=== PATIENT | female | born 1995 | race Caucasian/White ===

== ENCOUNTER → 2017-07-06 10:18 | Outpatient (CLI) | payer OTHER, SELFPAY ==
[2017-07-06 10:24] LABS: White Blood Cells 0 SEEN /hpf (0-5)
[2017-07-06 12:02] LABS: Color, Urine Yellow (Yellow); Glucose, Dipstick Normal (Normal); Ketone-Dipstick Negative (Negative); Leukocyte Esterase-Dipstick 25 /ul (Negative); Nitrite-Dipstick Negative (Negative); Occult Blood-Urine 250 /ul (Negative); Protein-Dipstick 30 mg/dl (Negative); Specific Gravity, Urine 1.015 (1.002-1.030); Urine Bilirubin Dipstick Negative (Negative); Urine Clarity Sl. Cloudy (Clear); Urine Urobilinogen Normal (Normal)
[2017-07-06 12:15] LABS: Amphetamine Urine VISTA NEGATIVE (<1000 ng/mL); Barbiturate Urine VISTA NEGATIVE (< 200 ng/mL); Benzodiazepine Urine VISTA NEGATIVE (< 200 ng/mL); Cocaine Urine VISTA NEGATIVE (< 300 ng/mL); Ecstacy Urine VISTA NEGATIVE (< 500 ng/mL); Methadone Urine VISTA NEGATIVE (< 300 ng/mL); PCP Urine VISTA NEGATIVE (< 25 ng/mL); THC Urine VISTA NEGATIVE (< 50 ng/mL); Vista UDS pH Range 5
[2017-07-06 12:16] LABS: Absolute Neutrophil Count 4.5 X10^3/uL (2.0-7.7); Basophil# 0.03 X10^3/uL; Basophil% 0.4 % (0-1); Eosinophil# 0.16 X10^3/uL; Eosinophils% 2.4 % (0-5); Hematocrit 39.2 % (37-47); Hemoglobin 12.7 g/dl (12.0-15.0); Lymphocyte % 23.6 % (19-41); Mean Corp Hgb Conc 32.4 g/gl (32-36); Mean Corpuscular Hgb 26.5 pg (27.0-32.0); Mean Corpuscular Volume 81.8 fL (81-99); Mean Platelet Vol. 9.9 fl (6.2-12.0); Monocyte# 0.45 X10^3/uL; Monocyte% 6.6 % (0-10); Neutrophil # 4.54 X10^3/uL (2.7-7.7); Neutrophil % 66.9 % (47-70); Platelet Count 368 K/mm3 (150-450); RBC Distribution Width CV 13.5 % (11.6-14.6); RBC Distribution Width SD 39.6 fl (35.1-43.9); Red Blood Count 4.79 M/mm3 (4.2-5.4); White Blood Count 6.8 K/mm3 (4.4-11.0)
[2017-07-06 12:17] LABS: POSITIVE COUNT NO; POSITIVE DIFFERENTIAL NO; POSITIVE MORPHOLOGY NO
[2017-07-06 12:23] LABS: Bacteria RARE /hpf (None Seen); Mucous, Urine RARE /hpf (<or=2+); Red Blood Cells-Urine 0-5 SEEN /hpf (0-5); Squamous Epithelial Cells - UA 0-5 SEEN /hpf (5-10)
[2017-07-06 12:37] LABS: Hemoglobin A1c 5.1 % (4.2-6.3)
[2017-07-06 12:40] LABS: ALB/GLOB Ratio 0.9 RATIO (0.9-2.4); AST(SGOT) 28 U/L (15-37); Alanine Aminotransfer ALT/SGPT 42 U/L (13-56); Albumin, Serum 3.6 g/dL (3.2-5.0); Alkaline Phosphatase 65 U/L (45-117); Anion Gap 9 (5-15); BUN 9 mg/dL (7-18); BUN/Creat Ratio 10.3 RATIO (10-20); Calcium,Total 8.4 mg/dL (8.5-10.1); Chloride 103 mmol/L (98-107); Cholesterol 167 mg/dL (200); Creatinine, Serum 0.87 mg/dL (0.55-1.02); EST Glomerular Filtration Rate 85 mL/min (>60); Est Glom Filt Rate - Afr Amer 103 mL/min (>60); Glucose 94 mg/dL (74-106); High Density Lipoprotein 36 mg/dL; Potassium 3.4 mmol/L (3.5-5.1); Protein, Total 7.6 g/dL (6.4-8.2); Sodium Level 140 mmol/L (136-145); Thyroid Stim Hormone (TSH) 1.42 uIU/mL (0.358-3.74); Triglycerides 177 mg/dL; Very Low Density Lipoprotein 35 mg/dL (5-40)
== END ==
LOC: MFPLAB 10:21
PROVIDERS: Family Provider Family Medicine; PCP Family Medicine; Visit Provider Family Medicine
DX: I10 Essential (primary) hypertension (principal); Z83.3 Family history of diabetes mellitus; E66.01 Morbid (severe) obesity due to excess calories
CPT/HCPCS: 36415; 80053; 80061; 80307; 81001; 83036; 84443; 85025

== ENCOUNTER → 2017-07-17 08:40 | Outpatient (CLI) | payer OTHER, SELFPAY ==
--- NOTE | 2017-07-17 08:46 | MRI_ITS ---
STUDY: MRI BRAIN WITH AND WITHOUT CONTRAST REASON FOR EXAM: Female, 22 years old. Headache, sudden and severe for 2 months. Focal area with blurred vision. TECHNIQUE: Standardized multiplanar fat and water weighted pulse sequences were obtained. 14 ml of Gadavist contrast material was administered intravenously for the contrast portion of the examination. COMPARISON: None. FINDINGS: Normal size of the ventricles and extra-axial spaces for the patient's age. Normal white matter tracts of the supratentorial brain. There is no evidence for recent intracranial ischemia or other cause of cytotoxic edema on diffusion weighted imaging (DWI). Normal T2* images of the brain without demonstrated susceptibility artifact. There is no demonstrated hemosiderin stain. Normal bilateral basal ganglia. Normal thalami. There is no extra-axial fluid accumulation. Normal flow voids within the major intracranial circulation suggesting patency by spin echo criteria. Normal venous enhancement. There is no enhancing intra-axial or extra-axial abnormality. Normal sella turcica, pituitary gland, infundibular stalk, optic chiasm and hypothalamus. Normal tectal plate and pineal gland. Normal midbrain, bettie and medulla. Normal cerebellum. Normal basal cisterns. Normal bilateral temporal bones. Normal bilateral internal auditory canals. No demonstrated orbital abnormality, within the constraints of a routine brain study. Normal visualized paranasal sinuses. Normal calvarium and skull base. Normal visualized soft tissue structures. Normal visualized upper cervical spine. MRI/Brain W/WO Contrast IMPRESSION: No evidence of acute intracranial bleed, mass or ischemia. No evidence of abnormal enhancement. Electronically Signed: Gregor Schmitt DO at 10:47 EDT , Service support ,
== END ==
LOC: MRI 08:41
PROVIDERS: Family Provider Family Medicine; PCP Family Medicine; Visit Provider Family Medicine
DX: R51 Headache (principal)
CPT/HCPCS: 70553; A9585

== ENCOUNTER 2017-09-06 14:30 | Emergency (ER) | payer OTHER, SELFPAY ==
--- NOTE | 2017-09-06 14:39 | EKG12_ITS ---
Test Reason : CP Blood Pressure : / mmHG Vent. Rate : 102 BPM Atrial Rate : 102 BPM P-R Int : 144 ms QRS Dur : 094 ms QT Int : 358 ms P-R-T Axes : 042 010 032 degrees QTc Int : 466 ms Sinus tachycardia Otherwise normal ECG Confirmed by NELSON HARE, BAIRON ([id number]), editor dictionary MIGUE DANIELS ([id number]) on 09/08/2017 3:30:59 PM Referred By: JUAN/REJI Confirmed By:BAIRON DAMON MD
[2017-09-06 14:40] VITALS: BP 150/95; PULSE 97; RESP 20; TEMP 36.7; O2SAT 99; BMI 50.7
[2017-09-06 14:43] VITALS: O2SAT 97
[2017-09-06] MEDS: Aspirin 81 MG TAB.CHEW 324 MG PO (14:51)
[2017-09-06] MEDS: 0.9% Normal Saline 1,000 ML 150 ML IV (14:52)
--- NOTE | 2017-09-06 14:55 | RAD_ITS ---
STUDY: X-RAY CHEST REASON FOR EXAM: Female, 22 years old. 2 day history of chest pain and intermittent shortness of breath. TECHNIQUE: PA and lateral views of the chest. COMPARISON: Comparison is made with prior examination dated March 23, 2017. FINDINGS: EKG electrodes are seen. The lungs are clear and expanded. Scattered calcified granulomas. There is no demonstrated pleural abnormality. Normal size heart. Normal mediastinum and felipe. Normal visualized pulmonary arteries. Normal visualized aortic arch and descending thoracic aorta. Normal visualized thoracic spine. Normal visualized ribs, clavicles, and shoulders. There is no demonstrated abnormality of the visualized soft tissue structures of the upper abdomen. RAD/Chest PA and Lateral IMPRESSION: Normal x-ray examination of the chest. Electronically Signed: Donavan Garg MD at 15:18 EDT Tel [phone], Service support ,
[2017-09-06 14:56] LABS: Absolute Lymphocyte Count 2.66 X10^3/ul (0.83-4.51); Absolute Neutrophil Count 5.9 X10^3/uL (2.0-7.7); Basophil# 0.03 X10^3/uL; Basophil% 0.3 % (0-1); Eosinophil# 0.16 X10^3/uL; Eosinophils% 1.7 % (0-5); Hematocrit 39.1 % (37-47); Hemoglobin 12.7 g/dl (12.0-15.0); Lymphocyte # 2.66 X10^3/ul (4.0); Lymphocyte % 27.6 % (19-41); Mean Corp Hgb Conc 32.5 g/gl (32-36); Mean Corpuscular Hgb 26.1 pg (27.0-32.0); Mean Corpuscular Volume 80.5 fL (81-99); Mean Platelet Vol. 9.4 fl (6.2-12.0); Monocyte# 0.92 X10^3/uL; Monocyte% 9.5 % (0-10); Neutrophil # 5.85 X10^3/uL (2.7-7.7); Neutrophil % 60.6 % (47-70); Platelet Count 372 K/mm3 (150-450); RBC Distribution Width CV 13.8 % (11.6-14.6); RBC Distribution Width SD 39.3 fl (35.1-43.9); Red Blood Count 4.86 M/mm3 (4.2-5.4); White Blood Count 9.7 K/mm3 (4.4-11.0)
[2017-09-06 15:01] LABS: POSITIVE COUNT NO; POSITIVE DIFFERENTIAL NO; POSITIVE MORPHOLOGY NO
[2017-09-06 15:11] LABS: Anion Gap 7 (5-15); BUN 7 mg/dL (7-18); BUN/Creat Ratio 7.4 RATIO (10-20); Calcium,Total 8.5 mg/dL (8.5-10.1); Chloride 106 mmol/L (98-107); Creatinine, Serum 0.94 mg/dL (0.55-1.02); D-Dimer Quantitative (DVT/PE) 0.35 FEU/ug/m (0.27-0.49); EST Glomerular Filtration Rate 78 mL/min (>60); Est Glom Filt Rate - Afr Amer 94 mL/min (>60); Estimated Creatinine Clearance 97.28 ml/min; Glucose 84 mg/dL (74-106); Potassium 3.4 mmol/L (3.5-5.1); Sodium Level 138 mmol/L (136-145)
--- NOTE | 2017-09-06 15:16 | ED.VISSUMM ---
- ER Visit Summary Date of Service: 09/06/17 Chief Complaint: Chest pain History of Present Illness: The patient is a 22 F Zentz to the emergency room with chest pain. Patient states she has been having it intermittently for the past 24 hours. She describes a sharp pressure in the middle of her chest the last about 10 minutes. She has had a scant cough. She was mildly short of breath when the pain started. She denies any pain when she takes a deep breath. She has no history of coronary vascular disease. She states that she did take her inhaler yesterday and it seemed to help. She has never been diagnosed with asthma but will have cough from time to time. She denies fevers or chills. There is no family history of blood clot. There is no family history of early cardiovascular disease. Physical Examination: Vital signs reviewed General: Well-nourished, well-developed Head: Normocephalic, atraumatic Eyes: Pupils equal and reactive, extraocular muscles intact Neck, supple, no lymphadenopathy Heart: Regular rate and rhythm Respiratory: No distress, clear bilaterally Abdomen: Soft, nontender, nondistended, no peritoneal signs Back: Nontender Extremities: Nontender, no edema, no cords Skin: Normal color no rash Neuro: Alert and oriented, no focal or lateralizing deficits Test Results: [] Emergency Department Course and Treatment: KG was obtained on patient arrival. There is no evidence of acute ischemic change. Patient was given IV Toradol and fluids. She had improvement of her pain. Screening labs including d-dimer unremarkable. Troponin is unremarkable. I do feel that this patient likely has musculoskeletal chest pain. I do not suspect a dangerous process. It is intermittent. Pain does not radiate to her back. I do not feel this is aortic dissection or other dangerous process. The patient was treated with anti-inflammatories and be discharged home. Treatment Plan: [] Disposition: Discharge Impression: 1. Costochondritis This note was generated with [employer] dictation software. It may contain incorrect words, spelling, and punctuation that were not noted in review of the chart prior to signing ED Disposition - Plan for ED Patient: Chief Complaint: Chest Pain Instructions: ED Chest Pain Costochondritis Prescriptions: Naproxen [Naprosyn] 500 mg PO BID PRN #20 tab Referrals: Rao Mclain MD [Primary Care Provider] -
[2017-09-06 15:54] VITALS: BP 131/70; PULSE 91; RESP 16; O2SAT 99
== END 2017-09-06 16:00 | disposition home or self-care (01) ==
LOC: ED 14:56
PROVIDERS: Emergency Provider Emergency Medicine; Family Provider Family Medicine; PCP Family Medicine
DX: M94.0 Chondrocostal junction syndrome [Tietze] (principal); R05 Cough; R06.00 Dyspnea, unspecified
CPT/HCPCS: 71046; 80048; 84484; 85025; 85379; 93005; 96360; 99285; J7030; A4216

== ENCOUNTER 2017-11-16 06:47 | Day surgery (SDC) | payer OTHER, SELFPAY ==
--- NOTE | 2017-11-16 | IMM_PTH ---
PATIENT: JASNO SIDDIQI LOC: EN U#:[id number] AGE/SX: 22/F ROOM: RE11/16/[address]: Dr. Farhan Bustamante MD : 1995 BED: DIS: 11/16/2017 SPEC #: [id number] RECD: 11/17/17 14:21 STATUS: NATIVIDAD REDonlel #: [id number] STACI: 11/16/17 00:[address]: Farhan Bustamante DEPT: IMMUNOHISTOCHEMISTRY RECD BY: Carolina Elias ENTERED: 11/17/17 14:21 SP TYPE: IMMUNO OTHR DR: Dr. Rao Mclain MD Tissues: A - Stomach, NOS Procedures: H Pylori (initial) PHYSICIAN & INSTITUTION [place] [id number] SPECIMEN INFORMATION: Tissue Source: A ? Antral biopsy Clinical Info: Esophageal dysphagia Specimen Number: [id number] CPT code: 70536 METHODOLOGY: Deparaffinized sections of prefer/formalin-fixed tissue or PAP/DQ stained slides are incubated with monoclonal/polyclonal antibodies/oligonucleotide probes. Localization is made via biotin free immunoperoxidase method. Appropriate controls are performed and reacted as expected. Results on target cell population are indicated in the following table: RESULTS: ANTIBODY / CLONE RESULT Block A H Pylori (polyclonal) negative These tests were developed and their performance characteristics determined by [facility]. They may not have been cleared or approved by the U.S. Food and Drug Administration. The FDA has determined that such clearance or approval is not necessary. INTERPRETATION: A. Gastric antrum, biopsy: Negative for Helicobacter pylori organisms. AM:walker 11/18/17
[2017-11-16 07:04] VITALS: BP 162/97; PULSE 99; RESP 16; TEMP 36.6; O2SAT 100; BMI 50.5
--- NOTE | 2017-11-16 08:00 | EGD_PTH ---
PATIENT: JASON SIDDIQI LOC: EN U#:[id number] AGE/SX: 22/F ROOM: RE11/16/[address]: Dr. Farhan Bustamante MD : 1995 BED: DIS: 11/16/2017 SPEC #: [id number] RECD: 11/16/17 08:34 STATUS: NATIVIDAD ELVIS #: [id number] STACI: 11/16/17 08:[address]: Farhan Bustamante DEPT: SURGICAL PATHOLOGY RECD BY: [place] ENTERED: 11/16/17 12:23 SP TYPE: EGD BIOPSY OT DR: Dr. Rao Mclain MD Tissues: A - Gastric mucous membrane B - Stomach, NOS C - Esophageal mucous membrane D - Esophageal mucous membrane Procedures: Surgery Specimen Level IV HEADER OPERATION[place] [place] DIAGNOSIS: Esophageal dysphagia TISSUE SUBMITTED: A ? Antral biopsy, B ? Mid stomach polyp biopsy, C ? Distal esophagus biopsy, D ? Mid esophagus biopsy MICROSCOPIC DIAGNOSIS A. Gastric antrum, biopsy: Mild chronic gastritis. B. Gastric polyp, biopsy: Polypoid fragment of benign gastric mucosa with minimal chronic inflammation. C. Distal esophagus, biopsy: Consistent with reflux esophagitis. D. Mid esophagus, biopsy: Fragment of benign squamous mucosa. No evidence of inflammation. AM:walker 11/17/17 COMMENT A. The results of immunohistochemistry for Helicobacter pylori will be reported separately ([id number]). MICROSCOPIC DESCRIPTION Slides are reviewed. GROSS DESCRIPTION A - Received in fixative is one container labeled with the patient's name and designated antral biopsy. The specimen consists of one irregular fragment of light walsh soft tissue that measures 0.6 x 0.2 x 0.1 cm. The specimen is totally submitted in one cassette. B - Received in fixative is one container labeled with the patient's name and designated mid stomach polyp biopsy. The specimen consists of one irregular fragment of light walsh soft tissue that measures 0.2 x 0.2 x 0.1 cm. The specimen is totally submitted in one cassette. C - Received in fixative is one container labeled with the patient's name and designated distal esophagus biopsy. The specimen consists of two irregular fragments of light walsh soft tissue that in aggregate measure 0.5 x 0.3 x 0.1 cm. The specimen is totally submitted in one cassette. D - Received in fixative is one container labeled with the patient's name and designated mid esophagus biopsy. The specimen consists of one irregular fragment of light walsh soft tissue that measures 0.3 x 0.2 x 0.1 cm. The specimen is totally submitted in one cassette. / AM:walker 11/16/17 TC:3 CPT: 48993 x4
--- NOTE | 2017-11-16 08:04 | PCM.OPRPT ---
Problem List (1) Dysphagia Status: Acute Qualifiers: Report of Operation Date of Procedure: 11/16/17 Pre-Operative Diagnosis: Esophageal dysphagia Post-Operative Diagnosis: Minimal hiatal hernia, mild antral gastritis, diminutive polyp of the mid stomach Surgery/Procedure Performed:: Esophagogastroduodenoscopy with cold forcep biopsies Description of Surgical Findings:: Timeout and informed consent was obtained. 22-year-old female was taken to the endoscopy room. Her oropharynx anesthetized with Topex. She was placed in a left lateral decubitus position. Because of her super morbid obesity she underwent monitored anesthesia care. Flexible gastroscope was inserted into the esophageal inlet. The proximal mid distal esophagus did not appear to be remarkable. The EG junction was at 40 cm. Very small hiatal hernia noted. No evidence of any reflux changes. The scope was advanced into the stomach. A mild amount of antral erythema noted. No ulcerations. No bleeding. Scope was advanced into the pylorus and the first and second portion of the duodenum were inspected this was not remarkable. Scope was withdrawn back in the stomach. Cold forcep biopsies obtained of the antrum. The scope was retroflexed. The EG junction and cardia inspected. Very minimal hiatal hernia. Scope was placed back in in antegrade viewing position. A small polyp of the mid body the stomach was identified. Cold forcep was used to sample and eradicate that. The entire greater and lesser curvatures were inspected were not otherwise unremarkable other than for the mild antral erythema. Excess fluid nurse aspirated free. The scope was withdrawn to the distal esophagus and the distal esophageal biopsy was obtained. Scope was withdrawn the mid esophagus and mid esophageal biopsy was obtained. Excess fluid and air was aspirated free the procedure was completed with the patient tolerating it well. Impression Minimal hiatal hernia. No evidence for gross reflux. Mild antral erythema. Benign-appearing mid stomach polyp. The patient will be notified of pathology results as they become available. If she persists on having dysphasia then consideration for a cookie swallow examination might be pursued. Cc: Dr Rao Bustamante M.D., F.A.C.S. Type of Anesthesia:: MAC
[2017-11-16 08:07] VITALS: BP 127/58; BP 162/97; PULSE 98; RESP 16; TEMP 35.6; O2SAT 91
[2017-11-16 08:10] VITALS: BP 133/53; BP 162/97; PULSE 92; RESP 18; O2SAT 94
[2017-11-16 08:15] VITALS: BP 128/64; BP 162/97; PULSE 92; RESP 16; O2SAT 95
[2017-11-16 08:21] VITALS: BP 141/62; BP 162/97; PULSE 84; RESP 16; TEMP 36.4; O2SAT 94
[2017-11-16 08:42] VITALS: BP 162/97
== END 2017-11-16 08:44 | disposition home or self-care (01) ==
LOC: EN 06:47 → AC 06:48
PROVIDERS: Family Provider Family Medicine; PCP Family Medicine; Visit Provider Surgery
PROC: 0DJ08ZZ Inspection of Upper Intestinal Tract, Via Natural or Artificial Opening Endoscopic (ICD-10-PCS; CPT 43235; principal; 2017-11-16 07:55)
DX: K29.70 Gastritis, unspecified, without bleeding (principal); K44.9 Diaphragmatic hernia without obstruction or gangrene; K31.7 Polyp of stomach and duodenum; E66.01 Morbid (severe) obesity due to excess calories; Z68.43 Body mass index [BMI] 50.0-59.9, adult; K21.9 Gastro-esophageal reflux disease without esophagitis; I10 Essential (primary) hypertension; Z79.899 Other long term (current) drug therapy
CPT/HCPCS: 43239; 88305; 88342; J7120

== ENCOUNTER 2019-02-28 16:50 | Emergency (ER) | payer MEDICAID, SELFPAY ==
[2019-02-28 16:51] VITALS: BP 163/85; PULSE 94; RESP 15; TEMP 37.1; O2SAT 97; BMI 53.8
--- NOTE | 2019-02-28 17:00 | ED.VIS.GEN ---
History of Present Illness Chief Complaint: Nausea/Vomiting/Diarrhea Informant: Patient Onset: Today Context: Gradual Onset Timing: Continuous Current Severity: Moderate Maximum Severity: Moderate Narrative: Patient presents to the emergency department abdominal cramping, nausea, vomiting, diarrhea. The patient states that her father was sick with similar symptoms earlier this week. States last night, she had some midepigastric cramping. She states shortly after, she began to have nausea and vomiting. This was followed by loose, watery diarrhea. She is had no blood in the emesis or in the diarrhea. She denies any fevers but does admit to some chills. She denies any recent travel. She is has no history of abdominal surgery. Prior similar symptoms: No Recent Illness/Hospitalization: No Past Medical History - Allergies and Home Meds Allergies/Adverse Reactions: Allergies No Known Allergies Allergy (Verified 02/28/19 16:58) Primary Care Physician: Rao Mclain MD [Primary Care Provider] - Prior records reviewed: Yes Past Medical History: None Surgical History: no surgical history Smoking Status: Never smoker Review of Systems General: Denies: Chills, Fever, Sweats Eyes: Denies: Visual changes - bilaterally, Diplopia ENT: Denies: Rhinorrhea, Sore throat Cardiovascular: Denies: Chest pain, Palpitations Respiratory: Denies: Dyspnea, Cough, Dyspnea on exertion Gastrointestinal: Reports: Abdominal pain, Nausea, Vomiting, Diarrhea. Denies: Melena, Hematochezia Genitourinary: Denies: Dysuria, Hematuria, Frequency Musculoskeletal: Denies: Back pain, Extremity Pain Skin: Denies: Rash, Wounds Neurological: Denies: Headache, Weakness, Numbness Physical Exam Vital Signs/Narrative: Vital Signs Temp Pulse Resp BP Pulse Ox 02/28/19 16:51 98.7 F 94 15 163/85 H 97 Inital Vital Signs reviewed: Yes General: Well nourished, Well developed, No Acute Distress Head: Normocephalic, Atraumatic Eyes: Perrl, EOMI ENT: Moist mucous membranes, No rhinorrhea Neck: Supple, Nontender Cardiovascular: Regular rate, Regular rhythm, No murmurs Respiratory: No distress, CTA bilaterally, Chest nontender Abdomen: Soft, Nontender, Nondistended, Normal bowel sounds Back: Nontender, Normal Inspection Extremities: Nontender, No edema Skin: Normal color, No rash Neurological: Alert, Oriented x3, Cranial nerves II-XII grossly intact, Normal Strength, Normal Sensation Psychological: Normal affect, Normal Mood Diagnostic/Tx/Re-eval Abnormal Lab Results 02/28/19 02/28/19 17:10 17:10 WBC 7.3 RBC 5.04 Hgb 12.6 Hct 40.1 MCV 79.6 L MCH 25.0 L MCHC 31.4 L RDW Std Deviation 37.6 RDW Coeff of [place] 13.3 Plt Count 297 MPV 9.1 Immature Gran % (Auto) 0.300 Neut % (Auto) 77.5 H Lymph % (Auto) 14.0 L [place] % (Auto) 6.5 Eos % (Auto) 1.4 Baso % (Auto) 0.3 Absolute Neuts (auto) 5.7 Absolute Lymphs (auto) 1.02 Nucleated RBC % 0 Sodium 140 Potassium 3.6 Chloride 108 H Carbon Dioxide 26.0 Anion Gap 6 BUN 12 Creatinine 0.83 Estim Creat Clear Calc 101.64 Est GFR (MDRD) Af Amer 109 Est GFR (MDRD) Non-Af 90 BUN/Creatinine Ratio 14.5 Glucose 88 Calcium 8.1 L - Medical Decision Making The patient symptoms do seem consistent with gastroenteritis. IV was established. She was given fluids and Phenergan. She was still having mild nausea. Screening labs were obtained and were relatively unremarkable. The patient was given Zofran and Bentyl. Her symptoms have totally resolved. Her abdomen exam is continued to be soft and nontender. I do not suspect a dangerous process. At this point, I do feel that she is safe for symptomatic care and outpatient follow-up. She was counseled on concerning symptoms and reasons to return. She will be discharged home. Impression 1. Gastroenteritis ED Disposition - Plan for ED Patient: Instructions: GASTROENTERITIS, Viral (5y-Adult) Prescriptions: Dicyclomine HCl [Bentyl] 20 mg PO TIDAC #20 cap Prescription Printed Ondansetron [Zofran Odt] 4 mg PO Q8H PRN PRN #10 tab PRN Reason: Nausea Prescription Printed Referrals: Rao Mclain MD [Primary Care Provider] -
[2019-02-28 17:22] LABS: Absolute Lymphocyte Count 1.02 X10^3/uL (0.83-4.51); Absolute Neutrophil Count 5.7 X10^3/uL (2.0-7.7); Basophil# 0.02 X10^3/uL; Basophil% 0.3 % (0-1); Eosinophils% 1.4 % (0-5); Hematocrit 40.1 % (37-47); Hemoglobin 12.6 g/dL (12.0-15.0); Lymphocyte # 1.02 X10^3/ul (4.0); Mean Corp Hgb Conc 31.4 g/dL (32-36); Mean Corpuscular Volume 79.6 fL (81-99); Mean Platelet Vol. 9.1 fl (6.2-12.0); Monocyte# 0.47 X10^3/uL; Monocyte% 6.5 % (0-10); NRBC Flagged by Analyzer 0 % (0-5); Neutrophil # 5.65 X10^3/uL (2.7-7.7); Neutrophil % 77.5 % (47-70); Platelet Count 297 K/mm3 (150-450); RBC Distribution Width CV 13.3 % (11.6-14.6); RBC Distribution Width SD 37.6 fl (35.1-43.9); Red Blood Count 5.04 M/mm3 (4.2-5.4); White Blood Count 7.3 K/mm3 (4.4-11.0)
[2019-02-28] MEDS: 0.9% Normal Saline 1,000 ML 1000 ML IV (17:28)
[2019-02-28] MEDS: proMETHazine 25 MG/ML Syringe 12.5 MG IV (17:28)
[2019-02-28] MEDS: Ketorolac 15 MG/ML Vial IV (17:29)
[2019-02-28 17:45] LABS: Anion Gap 6 (5-15); BUN 12 mg/dL (7-18); BUN/Creat Ratio 14.5 RATIO (10-20); Calcium,Total 8.1 mg/dL (8.5-10.1); Chloride 108 mmol/L (98-107); Creatinine, Serum 0.83 mg/dL (0.55-1.02); EST Glomerular Filtration Rate 90 mL/min (>60); Est Glom Filt Rate - Afr Amer 109 mL/min (>60); Estimated Creatinine Clearance 101.64 ml/min; Glucose 88 mg/dL (74-106); Potassium 3.6 mmol/L (3.5-5.1); Sodium Level 140 mmol/L (136-145)
[2019-02-28] MEDS: Ondansetron 4 MG/2 ML Vial IV (18:24)
[2019-02-28] MEDS: Dicyclomine 10 MG Capsule 20 MG PO (18:24)
[2019-02-28 18:59] VITALS: BP 108/73; PULSE 61; RESP 15; O2SAT 97
== END 2019-02-28 19:00 | disposition home or self-care (01) ==
PROVIDERS: Emergency Provider Emergency Medicine; Family Provider Family Medicine; PCP Family Medicine
DX: K52.9 Noninfective gastroenteritis and colitis, unspecified (principal); Z79.899 Other long term (current) drug therapy
CPT/HCPCS: 80048; 85025; 99283; J7030; A4216; J2405

== ENCOUNTER 2022-11-10 20:02 | Emergency (ER) | payer SELFPAY ==
[2022-11-10 20:03] VITALS: BP 173/100; PULSE 89; RESP 16; TEMP 36.3; O2SAT 98; BMI 51.4
--- NOTE | 2022-11-10 21:38 | ED.VIS.BACK ---
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 She has no radiation. No bowel bladder compromise or urinary retention symptoms. [facility] Medical History Barretts esophagus Dysphagia GERD (gastroesophageal reflux disease) Headache HTN (hypertension) Morbid obesity Home Medications naproxen 500 mg tablet (Naprosyn) 500 mg PO BID PRN pain #20 tabs 11/10/22 [Rx Last Taken Unknown] tizanidine 4 mg tablet 4 mg PO Q8H PRN muscle spasticity #10 tabs 11/10/22 [Rx Last Taken Unknown] Allergy/AdvReac Type Severity Reaction Status Date / Time No Known Allergies Allergy Verified 11/10/22 20:02 Family History Mother Arthritis Diabetes Cancer Thyroid Thyroid disorder Father Heart disease CVA (cerebral vascular accident) Arthritis Surgical History History of esophagogastroduodenoscopy (EGD) Social History Smoking Status: Never smoker second hand exposure: No alcohol intake: never substance use type: does not use caffeine: Yes what type of physical activity do you participate in: none frequency: does not exercise seatbelt use: always ROS ROS ED ROS Narrative Past medical history: Reviewed Medications: Reviewed Social history: Noncontributory Review of systems: All systems negative except as indicated General: No fever Cardiovascular: No chest pain Respiratory: No shortness of breath or cough Gastrointestinal: No abdominal pain, nausea vomiting or diarrhea Genitourinary: No dysuria Musculoskeletal: Back pain as in HPI Skin: No rash Neurological: No radicular symptoms EXAM Physical Exam Narrative Exam Narrative: Vitals reviewed General: Patient appears in some discomfort HEENT: Moist mucous membranes Neck: Nontender Cardiovascular normal heart rate Respiratory: No respiratory difficulty speaking in full sentences Abdomen: Soft and nontender, there is no suprapubic mass or pain Back: There is some tenderness over the lumbar region, pain is spinal and paraspinal both. Extremities: Moves all extremities without joint pain or signs of trauma Neurological: There is normal plantar flexion and dorsiflexion of both feet and great toes. Patellar and Achilles reflexes are normal. Normal strength and sensation. Negative straight leg test. Skin: No rash Psychiatric: Slightly anxious. Const Vital Signs: 11/10/22 20:03 Temperature 97.3 F L Temperature Source Temporal Pulse Rate 89 Respiratory Rate 16 Blood Pressure 173/100 H Blood Pressure Mean 124 Pulse Ox 98 MDM MDM MDM Narrative Medical decision making narrative: Patient has no radicular symptoms or red flags. I am not worried about cauda equina she has no fever chills or any other signs symptoms of discitis or osteomyelitis. A stat MRI is not needed. Patient has lifting injury and no obvious fall or trauma therefore x-rays not needed. Patient appears well I will discharge in stable condition. I will give her muscle relaxants and anti-inflammatories for home. I told her about proper lifting techniques Discharge Plan Triage Chief Complaint: Back ED Provider: Jack Hinds Dx/Rx/DC Orders Clinical Impression: Back pain, Acute lumbar myofascial strain Instructions: Back Exercises: Knee Lift, Back Exercises: Leg Pull, Back Exercises: Lower Back Stretch Prescriptions: New naproxen [Naprosyn] 500 mg tablet 500 mg PO BID PRN (Reason: pain) Qty: 20 0RF tizanidine 4 mg tablet 4 mg PO Q8H PRN (Reason: muscle spasticity) Qty: 10 0RF Primary Care Provider: Jamaica Burgess NP Referrals: Jamaica Burgess NP, [employer] [Primary Care Provider] - Disposition Disposition: Home, Self Care
[2022-11-10] MEDS: Orphenadrine 60 MG/2 ML Ampul IM (21:44)
[2022-11-10] MEDS: Ketorolac 30 MG/ML Syringe IM (21:44)
== END 2022-11-10 22:06 | disposition home or self-care (01) ==
PROVIDERS: Emergency Provider Emergency Medicine; PCP Nurse Practitioner Primary Care; Visit Provider Emergency Medicine
DX: S39.012A Strain of muscle, fascia and tendon of lower back, initial encounter (principal); E66.01 Morbid (severe) obesity due to excess calories; X50.0XXA Overexertion from strenuous movement or load, initial encounter; Y93.F2 Activity, caregiving, lifting; I10 Essential (primary) hypertension; K21.9 Gastro-esophageal reflux disease without esophagitis; Z79.899 Other long term (current) drug therapy
CPT/HCPCS: 96372; 99282

== ENCOUNTER 2025-01-10 22:00 | Emergency (ER) | payer MEDICAID, SELFPAY ==
[2025-01-10 22:01] VITALS: BP 176/97; PULSE 103; RESP 18; TEMP 36.1; O2SAT 100; BMI 50.2
[2025-01-10 22:22] VITALS: BP 161/72; PULSE 85; RESP 14; O2SAT 95
--- OUTSIDE RECORDS SUMMARY | 2025-01-10 22:33 | XMS RPT_ITS | CCD ---
Author Organization [facility] Care Team Providers Care Pairer Inspector Name Role Phone MARSHALL ROBLES DO Primary Care Physician MARSHALL ROBLES DO Attending Unavailable MARSHALL ROBLES DO Primary Care Unavailable MARSHALL ROBLES DO Attending Unavailable MARSHALL ROBLES DO Primary Care Unavailable MARSHALL ROBLES DO Attending Unavailable MARSHALL ROBLES DO Primary Care Unavailable MARSHALL ROBLES DO Attending Unavailable MARSHALL ROBLES DO Primary Care Unavailable MARSHALL ROBLES DO Attending Unavailable MARSHALL ROBLES DO Primary Care Unavailable Aditya PROFESSOR OF PUBLIC ADMINISTRATION, [place] Referring Unavailable Aditya PROFESSOR OF PUBLIC ADMINISTRATION, [place] Primary Care Unavailable Jorge Avilez Attending Unavailable Aditya PROFESSOR OF PUBLIC ADMINISTRATION, [place] Primary Care Unavailable Jorge Avilez Attending Unavailable Aditya PROFESSOR OF PUBLIC ADMINISTRATION, [place] Referring Unavailable Aditya PROFESSOR OF PUBLIC ADMINISTRATION, [place] Primary Care Unavailable Jack Hinds Attending Unavailable Aditya PROFESSOR OF PUBLIC ADMINISTRATION, [place] Referring Unavailable Aditya HEAD, [place] Primary Care Unavailable Jorge Avilez Attending Unavailable LEOINDES CHAVIRA JR Primary Care Unavailable LUDY, SADAF Referring Unavailable LUDY SADAF Referring Unavailable АЛЕКСАНДР SALINAS Attending Unavail able LEONIDES CHAVIRA JR Primary Care Unavailable LUDY, SADAF Referring Unavailable LEONIDES CHAVIRA JR Primary Care Unavailable PRINCESS SILVEIRAEE Attending Unavailable LEONIDES CHAVIRA JR Primary Care Unavailable Medications Current Medications Medication Drug Class(es) Dates Sig (Normalized) Sig (Original) hydroCHLOROthiazide 25 mg oral tablet (6 sources) Thiazide Diuretic Start: 2 hydroCHLOROthiazide 25 mg oral tablet Dose : 25 mg = 1 tab(s), Oral, qDay, # 30 tab(s), 5 Refill(s), Pharmacy: [facility], Hypertension, 176, cm, 09/16/21 11:40:00 EDT, Height, kg, 09/16/21 11:40:00 EDT, Dosing Weight Start Date: 09/16/21 Status: Ordered Start: 11-08-2017 End: 11-10-2022 hydroCHLOROthiazide 25 mg or al tablet Dose : 25 mg = 1 tab(s), Oral, qDay, # 30 tab(s), 5 Refill(s), Pharmacy: [facility], Hypertension, 175, cm, 02/27/21 10:06:00 EST, Height, kg, 02/27/21 10:06:00 EST, Dosing Weight Start Date: 02/27/21 Status: Ordered metoprolol tartrate 50 mg oral tablet (3 sources) beta-Adrenergic Meenu Start: 12-03-2021 metopr olol tartrate 50 mg oral tablet Dose : 50 mg = 1 tab(s), Oral, BID, Increased dose, # 60 tab(s), 5 Refill(s), Pharmacy: [facility], Hypertension, 176, cm, 12/03/21 10:53:00 EDT, Height Start Date: 12/03/21 Status: Ordered Start: 10-23-2021 metoprolol tar trate 25 mg oral tablet Dose : 25 mg = 1 tab(s), Oral, BID, # 60 tab(s), 1 Refill(s), Pharmacy: [facility], Uncontrolled hypertension, 176, cm, 10/23/21 9:46:00 EDT, Height Start Date: 10/23/21 Status: Ordered naproxen 500 mg oral tablet (2 sources) Nonsteroidal Anti-inflammatory Drug Start: 11-10-2022 take 1 tablet by mouth twice daily Naproxen (Naprosyn) 500 mg tablet Active 500 MG PO TWICE A DAY November 10, 2022 12:00am Start: 09-06-2017 End: 11-08-2017 take 500 mg by mouth twice daily as needed Naproxen Discontinued 500 MG PO TWICE DAILY NEEDED September 06, 2017 12:00am November 08, 2017 1:28pm pantoprazole 40 mg delayed release oral tablet (6 sources) Proton Pump Inhibitor Start: 09-16-2021 pantoprazole 40 mg oral enteric coated tablet Dose : 40 mg = 1 tab(s), Oral, BID, Increasing dose, failed once a day dosing., # 60 tab(s), 5 Refill(s), Pharmacy: [facility], Acid reflux, 176, cm, 09/16/21 11:40:00 EDT, Height, kg, 09/16/21 11:40:00 EDT, Dosing Weight Start Date: 09/16/21 Status: Ordered Start: 04-10-2021 pantoprazole 4 0 mg oral enteric coated tablet Dose : 40 mg = 1 tab(s), Oral, BID, Increasing dose, failed once a day dosing., # 60 tab(s), 5 Refill(s), Pharmacy: [facility], Acid reflux, 176, cm, 04/10/21 14:28:00 EST, Height, kg, 04/10/21 14:28:00 EST, Dosing Weight Start Date: 04/10/21 Status: Ordered Start: 11-08-2017 End: 11-10-2022 pantoprazole 40 mg oral ente joceline coated tablet Dose : 40 mg = 1 tab(s), Oral, qDay, # 30 tab(s), 5 Refill(s), Pharmacy: [facility], Acid reflux, 175, cm, 02/27/21 10:06:00 EST, Height, kg, 02/27/21 10:06:00 EST, Dosing Weight Start Date: 02/27/21 Status: Ordered Sprintec 0.25 mg-35 mcg oral tablet (2 sources) Start: 02-27-2021 take 1 tablet by mouth once daily Sprintec 0.25 mg-35 mcg oral tablet Dose = 1 tab(s), Oral, qDay, # 28 tab(s), 3 Refill(s), Pharmacy: [facility], Menorrhagia with regular cycle, 175, cm, 02/27/21 10:06:00 EST, Height, kg, 02/27/21 10:06:00 EST, Dosing Weight Start Date: 02/27/21 Status: Ordered Sucralfate (1 source) Aluminum Complex Start: 03-25-2020 take 1 dose by mouth at bedtime Carafate 1 g/10 mL oral suspension Dose : 1 gram(s) = 10 mL, Oral, achs, # 1,120 mL, 0 Refill(s), Pharmacy: [facility], RUQ abdominal pain, 175.4, cm, 10/12/19 10:44:00 EDT, Height, kg, 10/12/19 10:44:00 EDT, Dosing Weight Start Date: 03/25/20 Status: Ordered tiZANidine 4 mg oral tablet (1 source) Central alpha-2 Adrenergic Agonist Start: 11-10-2022 take 4 mg by mouth every eight hours Tizanidine Active 4 MG PO Q8H November 10, 2022 12:00am Completed/Discontinued Medications Medication Drug Class(es) Dates Sig (Normalized) Sig (Original) dicyclomine hydrochloride 10 mg oral capsule (1 source) Anticholinergic Start: 02-28-2019 End: 11-10-2022 take 20 mg by mouth three times daily before mealtime Dicyclomine Discontinued 20 MG PO THREE TIMES DAILY BEFORE MEALS February 28, 2019 1:00am November 10, 2022 8:02pm lansoprazole 15 mg delayed release oral capsule (1 source) Proton Pump Inhibitor Start: 03-23-2017 End: 11-08-2017 take 15 mg by mouth once daily Lansoprazole Discontinued 15 MG PO DAILY March 23, 2017 1:00am November 08, 2017 1:28pm ondansetron 4 mg disintegrating oral tablet (1 source) Serotonin-3 Receptor Antagonist Start: 02-28-2019 End: 11-10-2022 take 4 mg by mouth every eight hours as needed Ondansetron Discontinued 4 MG PO EVERY 8 HOURS NEEDED February 28, 2019 1:00am November 10, 2022 8:02pm ondansetron 4 mg oral tablet, disintegrating (1 source) Start: 03-25-2020 End: 03-28-2020 ondansetron 4 mg oral tablet, disintegrating Dose : 4 mg = 1 tab(s), Oral, TID, # 9 tab(s), 0 Refill(s), Pharmacy: [facility], Nausea, 175.4, cm, 10/12/19 10:44:00 EDT, Height, kg, 10/12/19 10:44:00 EDT, Dosing Weight Start Date: 03/25/20 Stop Date: 03/28/20 Status: Ordered raNITIdine 150 mg oral tablet (1 source) Histamine-2 Receptor Antagonist Start: 11-08-2017 End: 11-10-2022 take 1 capsule by mouth once daily ranitidine 150 mg capsule Discontinued 150 MG PO daily November 08, 2017 12:00am November 10, 2022 8:02pm 24 hr verapamil hydrochloride 240 mg extended release oral capsule (2 sources) Calcium Channel Meenu Start: 11-08-2017 End: 11-10-2022 take 240 mg by mouth once daily in the morning Verapamil Discontinued 240 MG PO EVERY MORNING November 08, 2017 12:00am November 10, 2022 8:02pm Start: 09-06-2017 End: 11-08-2017 take 40 mg by mouth once daily Verapamil Discontinued 40 MG PO DAILY September 06, 2017 12:00am November 08, 2017 1:28pm Problems Active Problems Problem Classification Problem Date Documented Da te Episodic/Chronic Abdominal pain (1 source) Abdominal pain; Translations: [Unspecified abdominal pain] 02-28-2019 Episodic Administrative/social admission (2 sources) Patient encounter status; Translations: [Encounter for pre-employment examination] Onset: 04-30-2023 04-21-2019 Episodic Anxiety disorders (5 sources) Mixed anxiety and depressive disorder 10-12-2019 Chronic Esophageal disorders (7 sources) Acid reflux; Translations: [Gastroesophageal reflux disease] 05-16-2019 Chronic Essential hypertension (9 sources) Hypertensive disorder; Translations: [Essential (primary) hypertension] 01-11-2019 Chronic Gastritis and duodenitis (1 source) Gastritis; Translations: [Gastritis, unspecified, without bleeding] 11-16-2017 Episodic Headache; including migraine (1 source) Headache; Translations: [Headache] 11-16-2017 Episodic Hypertension complicating ; childbirth and the puerperium (1 source) Unspecified pre-existing hypertension complicating , unspecified trimester; Translations: [Chronic hypertension in (HCC)] Onset: 01-01-2025 Chronic Immunizations and screening for infectious disease (4 sources) Encounter for screening for infections with a predominantly sexual mode of transmission; Translations: [Encounter for screening for human papillomavirus (HPV)] Onset: 12-03-2021 Episodic Menstrual disorders (5 sources) Menorrhagia 02-27-2021 Chronic Other circulatory disease (3 sources) Easy bruising 10-23-2021 Episodic Other circulatory disease (1 source) Personal history of other diseases of the circulatory system; Translations: [History of hypertension] Onset: 12-13-2024 Episodic Other complications of (1 source) Obesity complicating , unspecified trimester; Translations: [Obesity in ([facility])] Onset: 01-01-2025 Chronic Other complications of (1 source) Supervision of high risk , unspecified, unspecified trimester; Translations: [Supervision of high risk , antepartum ([facility])] Onset: 12-13-2024 Episodic Other gastrointestinal disorders (1 source) Dysphagia; Translations: [Dysphagia, unspecified] 11-16-2017 Episodic Other nutritional; endocrine; and metabolic disorders (5 sources) Morbid obesity; Translations: [Morbid (severe) obesity due to excess calories] 03-14-2021 Chronic Other and delivery including normal (1 source) Encounter for supervision of normal , unspecified, first trimester; Translations: [ with uncertain dates in first trimester ([facility])] Onset: 12-13-2024 Episodic Other screening for suspected conditions (not mental disorders or infectious disease) (5 sources) Encounter for screening for malignant neoplasm of cervix; Translations: [Viral screening status] Onset: 12-03-2021 Episodic Other upper respiratory infections (4 sources) Viral upper respiratory tract infection 03-14-2021 Episodic Residual codes; unclassified (5 sources) Bilateral lower limb edema 02-27-2021 Episodic Residual codes; unclassified (5 sources) Needs influenza immunization 02-27-2021 Episodic Residual codes; unclassified (5 sources) Dyssomnia 03-10-2019 Episodic Residual codes; unclassified (1 source) Past history of procedure; Translations: [Other specified postprocedural states] 11-16-2017 Episodic Residual codes; unclassified (1 source) 12 weeks gestation of ; Translations: [12 weeks gestation of ([facility])] Onset: 01-01-2025 Episodic Residual codes; unclassified (1 source) 10 weeks gestation of ; Translations: [10 weeks gestation of ([facility])] Onset: 01-01-2025 Episodic Sprains and strains (1 source) Lower back injury; Translations: [Strain of muscle, fascia and tendon of lower back, initial encounter] 11-10-2022 Episodic Unclassified (2 sources) Cancer cervix screening status 12-03-2021 Unclassified (10 sources) Patient encounter status 12-03-2021 Past or Other Problems Problem Classification Problem Date Documented Da te Episodic/Chronic Spondylosis; intervertebral disc disorders; other back problems (2 sources) Backache; Translations: [Dorsalgia, unspecified] Onset: 11-17-2022 11-10-2022 Episodic Results Test Name Value Interpretation Reference Range Facility CBC panel Auto (Bld)on 01-02 Erythrocyte distribution width (RBC) [Ratio] 13.6 % Normal 11.5-15.0 [facility] Comment on above: Order Comment: Blanco rodriges Type: BLOOD SPECIMEN Ordering Facility: [facility] Address: [address] [place] [address] Performed By: #### 5 8410-2 #### [id number] [address] [place] [address] [place] Hematocrit (Bld) [Volume fraction] 36.8 % Normal 36.0-46.0 [facility] Comment on above: Order Comment: Blanoc rodriges Type: BLOOD SPECIMEN Ordering Facility: [facility] Address: [address] [place] [address] Performed By: #### 5 8410-2 #### [facility] [id number] [address] [place] [address] [place] Hemoglobin (Bld) [Mass/Vol] 12.6 g/dL Normal 11.5-15.5 [facility] Comment on above: Order Comment: Blanco rodriges Type: BLOOD SPECIMEN Ordering Facility: [facility] Address: [address] [place] [address] Performed By: #### 5 8410-2 #### [facility] CLIA [id number] [address] [place] [address] [place] MCH (RBC) [Entitic mass] 27.8 pg Normal 26.0-34.0 [facility] Comment on above: Order Comment: Speci men Type: BLOOD SPECIMEN Ordering Facility: [facility] Address: [address] [place] [address] Performed By: #### 5 8410-2 #### [facility] CLIA [id number] [address] [place] [address] [place] MCHC (RBC) [Mass/Vol] 34.2 g/dL Normal 30.5-36.0 [facility] Comment on above: Order Comment: Speci men Type: BLOOD SPECIMEN Ordering Facility: [facility] Address: [address] [place] [address] Performed By: #### 5 8410-2 #### [facility] [id number] [address] [place] [address] [place] MCV (RBC) [Entitic vol] 81.1 fL Normal 80.0-100.0 [facility] Comment on above: Order Comment: Speci men Type: BLOOD SPECIMEN Ordering Facility: [facility] Address: [address] [place] [address] Performed By: #### 5 8410-2 #### [facility] [id number] [address] [place] [address] [place] Nucleated RBC (Bld) [#/Vol] 10*3/uL Normal <0.01 [facility] Comment on above: Order Comment: Speci men Type: BLOOD SPECIMEN Ordering Facility: [facility] Address: [address] [place] [address] Performed By: #### 5 8410-2 #### [facility] [id number] [address] [place] [address] [place] Platelet mean volume (Bld) [Entitic vol] 9.5 fL Normal 9.0-12.7 [facility] Comment on above: Order Comment: Speci men Type: BLOOD SPECIMEN Ordering Facility: [facility] Address: [address] [place] [address] Performed By: #### 5 8410-2 #### [facility] CLIA [id number] [address] [place] [address] [place] Platelets (Bld) [#/Vol] 277 10*3/uL Normal 150-400 [facility] Comment on above: Order Comment: Speci men Type: BLOOD SPECIMEN Ordering Facility: [facility] Address: [address] [place] [address] Performed By: #### 5 8410-2 #### [facility] CLIA [id number] [address] [place] [address] [place] RBC (Bld) [#/Vol] 4.54 10*6/uL Normal 3.90-5.20 [facility] Comment on above: Order Comment: Speci men Type: BLOOD SPECIMEN Ordering Facility: [facility] Address: [address] [place] [address] Performed By: #### 5 8410-2 #### [facility] CLIA [id number] [address] [place] [address] [place] WBC (Bld) [#/Vol] 8.99 10*3/uL Normal 3.70-11.00 [facility] Comment on above: Order Comment: Speci men Type: BLOOD SPECIMEN Ordering Facility: [facility] Address: [address] [place] [address] Performed By: #### 5 8410-2 #### [facility] CLIA [id number] [address] [place] [address] [place] Comprehensive metabolic 2000 panelon 01-02-2025 Albumin [Mass/Vol] 3.8 g/dL Low 3.9-4.9 [facility] Comment on above: Order Comment: Speci men Type: BLOOD SPECIMEN Ordering Facility: [facility] Address: [address] [place] [address] Performed By: #### 5 8410-2 #### [facility] CLIA [id number] [address] [place] [address] [place] ALP [Catalytic activity/Vol] 61 U/L Normal 34-123 [facility] Comment on above: Order Comment: Speci men Type: BLOOD SPECIMEN Ordering Facility: [facility] Address: [address] [place] [address] Performed By: #### 5 8410-2 #### [facility] CL[facility] [id number] [address] [place] [address] [place] ALT [Catalytic activity/Vol] 7 U/L Normal 7-38 [facility] Comment on above: Order Comment: Speci men Type: BLOOD SPECIMEN Ordering Facility: [facility] Address: [address] [place] [address] Performed By: #### 5 8410-2 #### [facility] CLIA [id number] [address] [place] [address] [place] Anion gap [Moles/Vol] 13 mmol/L Normal 8-15 [facility] Comment on above: Order Comment: Speci men Type: BLOOD SPECIMEN Ordering Facility: [facility] Address: [address] [place] [address] Performed By: #### 5 8410-2 #### [facility] CLIA [id number] [address] [place] [address] [place] AST [Catalytic activity/Vol] 10 U/L Low 13-35 [facility] Comment on above: Order Comment: Speci men Type: BLOOD SPECIMEN Ordering Facility: [facility] Address: [address] [place] [address] Performed By: #### 5 8410-2 #### [facility] CLIA [id number] [address] [place] [address] [place] Bilirubin [Mass/Vol] 0.6 mg/dL Normal 0.2-1.3 [facility] Comment on above: Order Comment: Speci men Type: BLOOD SPECIMEN Ordering Facility: [facility] Address: [address] [place] [address] Performed By: #### 5 8410-2 #### [facility] CLIA [id number] [address] [place] [address] [place] Calcium [Mass/Vol] 8.8 mg/dL Normal 8.5-10.2 [facility] Comment on above: Order Comment: Speci men Type: BLOOD SPECIMEN Ordering Facility: [facility] Address: [address] [place], [place] [id number] Performed By: #### 5 8410-2 #### [facility] CLIA [id number] [address] [place] [address] [place] Chloride [Moles/Vol] 105 mmol/L Normal 98-107 [facility] Comment on above: Order Comment: Speci men Type: BLOOD SPECIMEN Ordering Facility: [facility] Address: [address] [place] [address] Performed By: #### 5 8410-2 #### [facility] CLIA [id number] [address] [place] [address] [place] CO2 [Moles/Vol] 17 mmol/L Low 22-30 [facility] Comment on above: Order Comment: Speci men Type: BLOOD SPECIMEN Ordering Facility: [facility] Address: [address] [place] [address] Performed By: #### 5 8410-2 #### [facility] CLIA [id number] [address] [place] [address] [place] Creatinine [Mass/Vol] 0.58 mg/dL Normal 0.58-0.96 [facility] Comment on above: Order Comment: Speci men Type: BLOOD SPECIMEN Ordering Facility: [facility] Address: [address] [place] [address] Performed By: #### 5 8410-2 #### [facility] [id number] [address] [place] [address] [place] eGFRcr SerPlBld CKD-EPI 2020 125 mL/min/1.73m??? Normal >=60 [facility] Comment on above: Order Comment: Blanco rodriges Type: BLOOD SPECIMEN Ordering Facility: [facility] Address: [address] [place] [address] Result Comment: Priscilla mated Glomerular Filtration Rate (eGFR) is calculated using the 2020 CKD-EPI creatinine equation. This equation utilizes serum creatinine, sex, and age as parameters. The creatinine assay has traceable calibration to isotope dilution-mass spectrometry. Refer to KDIGO guidelines for clinical interpretation. In patients with unstable renal function, e.g. those with acute kidney injury, the eGFR may not accurately reflect actual GFR. Performed By: #### 5 8410-2 #### [facility] [id number] [address] [place] [address] [place] Glucose [Mass/Vol] 121 mg/dL High 74-99 [facility] Comment on above: Order Comment: Blanco rodriges Type: BLOOD SPECIMEN Ordering Facility: [facility] Address: [address] [place] [address] Result Comment: The [place] Diabetes Association (ADA) provides guidance for cutoff values for fasting glucose and random glucose. The ADA defines fasting as no caloric intake for at least 8 hours. Fasting plasma glucose results between 100 to 125 mg/dL indicate increased risk for diabetes (prediabetes). Fasting plasma glucose results greater than or equal to 126 mg/dL meet the criteria for diagnosis of diabetes. In the absence of unequivocal hyperglycemia, results should be confirmed by repeat testing. In a patient with classic symptoms of hyperglycemia or hyperglycemic crisis, random plasma glucose results greater than or equal to 200 mg/dL meet the criteria for diagnosis of diabetes. Reference: Standards of Medical Care in Diabetes 2016, [place] [employer] Association. Diabetes Care. 2016.39(Suppl 1). Performed By: #### 5 8410-2 #### [facility] [id number] [address] [place] [address] [place] Potassium [Moles/Vol] 3.7 mmol/L Normal 3.7-5.1 [facility] Comment on above: Order Comment: Speci men Type: BLOOD SPECIMEN Ordering Facility: [facility] Address: [address] [place] [address] Performed By: #### 5 8410-2 #### [facility] CLIA [id number] [address] [place] [address] [place] Protein [Mass/Vol] 7.0 g/dL Normal 6.3-8.0 [facility] Comment on above: Order Comment: Speci men Type: BLOOD SPECIMEN Ordering Facility: [facility] Address: [address] [place] [address] Performed By: #### 5 8410-2 #### [facility] [id number] [address] [place] [address] [place] Sodium [Moles/Vol] 135 mmol/L Low 136-144 [facility] Comment on above: Order Comment: Speci men Type: BLOOD SPECIMEN Ordering Facility: [facility] Address: [address] [place] [address] Performed By: #### 5 8410-2 #### [facility] [id number] [address] [place] [address] [place] Urea nitrogen [Mass/Vol] 5 mg/dL Low 7-21 [facility] Comment on above: Order Comment: Speci men Type: BLOOD SPECIMEN Ordering Facility: [facility] Address: [address] [place] [address] Performed By: #### 5 8410-2 #### [facility] [id number] [address] [place] [address] [place] HBV surface Ag Ser Qlon 10- HBV surface Ag Ql (S) Negative Normal Negative [facility] Comment on above: Order Comment: Speci men Type: BLOOD SPECIMEN Ordering Facility: [facility] Address: [address] [place] [address] Performed By: #### 5 8410-2 #### [facility] CLIA [id number] [address] [place] [address] [place] HCV Ab Ser Qlon 01-02-2025 HCV Ab Ql (S) Negative Normal Negative [facility] Comment on above: Order Comment: Speci men Type: BLOOD SPECIMEN Ordering Facility: [facility] Address: [address] [place] [address] Result Comment: The result suggests no evidence of infection with Hepatitis C virus. Should recent infection be suspected, repeat testing may be considered 4-6 weeks after this draw. Performed By: #### 1 6128-1 #### [facility] CLIA [id number] [address] [place] [address] [place] HIV 1+2 Ab IA Qlon HIV 1 and 2 Ab IA.rapid Nom (S/P/Bld) Normal [facility] Comment on above: Order Comment: Speci men Type: BLOOD SPECIMEN Ordering Facility: [facility] Address: [address] [place] [address] Result Comment: Test not indicated. Performed By: #### 5 8410-2 #### [facility] CLIA [id number] [address] [place] [address] [place] HIV 1+2 Ab+HIV1 p24 Ag IA Ql Non-Reactive Normal Nonreactive [facility] Comment on above: Order Comment: Speci men Type: BLOOD SPECIMEN Ordering Facility: [facility] Address: [address] [place] [address] Performed By: #### 5 8410-2 #### [facility] CLIA [id number] [address] [place] [address] [place] HIV immunoassay testing algorithm interpretation (S/P/Bld) [Interp] Normal [facility] Comment on above: Order Comment: Speci men Type: BLOOD SPECIMEN Ordering Facility: [facility] Address: [address] [place] [address] Result Comment: No e vidence of HIV-1 or HIV-2 infection. Should recent infection be suspected, repeat testing may be considered 2-3 weeks after this draw. Coleman Rev. Code 3701.243(E): This information has been disclosed to you from confidential records protected from disclosure by state law. You shall make no further disclosure of this information without the specific, written, and informed release of the individual to whom it pertains or as otherwise permitted by state law. A general authorization for the release of medical or other information is not sufficient for the purpose of the release of HIV test results or diagnoses. Performed By: #### 5 8410-2 #### [facility] CLIA [id number] [address] [place] [address] [place] HbA1c (Bld)on 01-02-2025 Average glucose Estimated from glycated hemoglobin (Bld) [Mass/Vol] 85 mg/dL Normal [facility] Comment on above: Order Comment: Speci men Type: BLOOD SPECIMEN Ordering Facility: [facility] Address: [address] [place] [address] Result Comment: eAG: (Estimated average glucose) is a calculated value from HgbA1c and is truck sales representative of the average blood glucose level in the last 2-3 month period. Performed By: #### 5 5454-3 #### [facility] CLIA [id number] [address] [place] [address] [place] HbA1c (Bld) [Mass fraction] 4.6 % Normal 4.3-5.6 [facility] Comment on above: Order Comment: Blanco rodriges Type: BLOOD SPECIMEN Ordering Facility: [facility] Address: [address] [place] [address] Result Comment: Amer ican Diabetes Association guidelines indicate that patients with HgbA1c in the range 5.7-6.4% are at increased risk for development of diabetes, and intervention by lifestyle modification may be beneficial. HgbA1c greater or equal to 6.5% is considered diagnostic of diabetes. Performed By: #### 5 5454-3 #### [facility] CLIA [id number] [address] [place], [place] [address] [place] Prot/Creat Uron 01-02-2025 Protein/Creatinine (U) [Mass ratio] 0.08 mg/mg Normal <0.15 [facility] Comment on above: Order Comment: Speci men Type: URINE SPECIMEN Ordering Facility: [facility] Address: [address] [place] [address] Result Comment: Adul t Proteinuria Categories: <0.15 mg/mg is considered normal to mildly increased 0.15 - 0.50 mg/mg is considered moderately increased >0.50 mg/mg is considered severely increased KDIGO. (2013). KDIGO 2012 Clinical Practice Guideline for the Evaluation and Management of Chronic Kidney Disease. Official Journal of the International Society of Nephrology, 3(1), 1-150. Performed By: #### 2 890-2 #### [facility] CLIA [id number] [address] [place] [address] [place] Protein/Creatinine (U) [Mass ratio]on 01-02-2025 Creatinine (U) [Mass/Vol] 158.8 mg/dL Normal 20.0-300.0 [facility] Comment on above: Order Comment: Speci men Type: URINE SPECIMEN Ordering Facility: [facility] Address: [address] [place] [address] Performed By: #### 2 890-2 #### [facility] CLIA [id number] [address] [place] [address] [place] Protein (U) [Mass/Vol] 12 mg/dL Normal 0-20 [facility] Comment on above: Order Comment: Speci men Type: URINE SPECIMEN Ordering Facility: [facility] Address: [address] [place] [address] Performed By: #### 2 890-2 #### [facility] CLIA [id number] [address] [place] [address] [place] RUBELLA IGG ANTIBODYon 01-02 RUBELLA IGG AB, QUAL Negative Abnormal Positive [facility] Comment on above: Order Comment: Speci men Type: BLOOD SPECIMEN Ordering Facility: [facility] Address: [address] [place] [address] Result Comment: The result suggests no history of Rubella vaccination or exposure to Rubella virus, however, some individuals with past history of Rubella vaccination may test negative using this test as immunity to Rubella virus wanes over time after vaccination. Please correlate with vaccination history if applicable. Performed By: #### 5 8410-2 #### [facility] CLIA [id number] [address] [place] [address] [place] Reagin and Treponema pallidu m IgG and IgM [Interp]on 01-02-2025 T. pallidum IgG+IgM IA Ql (S) Non-Reactive Normal Nonreactive [facility] Comment on above: Order Comment: Speci men Type: BLOOD SPECIMEN Ordering Facility: [facility] Address: [address] [place] [address] Performed By: #### 5 8410-2 #### [facility] CLIA [id number] [address] [place] [address] [place] Reagin+T pallidum IgG+IgM Se rPl-Impon 01-02-2025 Reagin and Treponema pallidum IgG and IgM [Interp] Cannot exclude recent Treponemal infection if specimen collected within 7-10 days after appearance of suspect lesions or 2-3 weeks after an exposure. Clinical correlation is required. Normal [facility] Comment on above: Order Comment: Speci men Type: BLOOD SPECIMEN Ordering Facility: [facility] Address: [address] [place] [address] Performed By: #### 5 8410-2 #### [facility] CLIA [id number] [address] [place] [address] [place] TYPE + SCREEN PRENATALon ABO A Normal [facility] Comment on above: Order Comment: Speci men Type: BLOOD SPECIMEN Ordering Facility: [facility] Address: [address] [place] [address] Performed By: #### T SPN #### [facility] CLIA [id number] [address] [place] [address] [place] Rh Nom (Bld) Positive Normal [facility] Comment on above: Order Comment: Speci men Type: BLOOD SPECIMEN Ordering Facility: [facility] Address: [address] [place] [address] Performed By: #### T SPN #### [facility] CLIA [id number] [address] [place] [address] [place] TYPE AND SCREEN EXPIRATION 01/05/2025 23:59 Normal [facility] Comment on above: Order Comment: Speci men Type: BLOOD SPECIMEN Ordering Facility: [facility] Address: [address] [place] [address] Performed By: #### T SPN #### [facility] CLIA [id number] [address] [place] [address] OF JOE Gage 12-28-2024 [facility] Telephone (OBGWSR) JASON SIDDIQI ([id number]) 1995 F Date Time Provider Department 12/28/24 HISTORICAL OBGWSR During your visit today, we recorded the following information about you: Abdulaziz Lerma 12/28/2024 12:45 PM Signed Referral to [facility] Patient lives in [place]. Sent to [facility] to assist with scheduling. Allergies As of Date: 12/28/2024 (No Known Allergies) Date Reviewed: 12/12/2024 Reviewed by: Melly Mckeon LPN - Fully Assessed Prescriptions as of 12/28/2024 - aspirin, enteric coated (ECOTRIN LOW STRENGTH) 81 mg EC tablet Take 1 tablet by mouth once daily. - vit,j carlos 74/iron/folic ( VITAMIN 1+1 ORAL) Take by mouth once daily. Problem List As Of Date 12/28/2024 Noted Resolved BMI 50.0-59.9, adult (HCC) [Z68.43] 12/13/2024 History of hypertension [Z86.79] 12/13/2024 Supervision of high risk , antepartum *12/13/2024 Encounter Status:Closed by ABDULAZIZ LERMA on 12/28/24 [facility] CNCOon 12-21-2024 CNCO Letter Text [facility] CNPNon 12-14-2024 CNPN Telephone ([id number]) JASON SIDDIQI ([id number]) 1995 F Date Time Provider Department 12/14/24 BARBRA BLAIR [id number] During your visit today, we recorded the following information about you: Barbra Blair RN 12/14/2024 10:03 AM Signed 1st risk assessment form submitted 12/14/2024. Barbra Blair RN Allergies As of Date: 12/14/2024 (No Known Allergies) Date Reviewed: 12/12/2024 Reviewed by: Melly Mckeon LPN - Fully Assessed Reason for Visit: Supervisor [employer] - Other [3172] Cmt: LUCRECIA Prescriptions as of 12/14/2024 - aspirin, enteric coated (ECOTRIN LOW STRENGTH) 81 mg EC tablet Take 1 tablet by mouth once daily. - vit,j carlos 74/iron/folic ( VITAMIN 1+1 ORAL) Take by mouth once daily. Problem List As Of Date 12/14/2024 Noted Resolved BMI 50.0-59.9, adult (HCC) [Z68.43] 12/13/2024 History of hypertension [Z86.79] 12/13/2024 Supervision of high risk , antepartum *12/13/2024 Encounter Status:Closed by BARBRA BLAIR on 9/25/25 [facility] Bacteria Ur Culton Bacteria identified Cx Nom (U) ORGANISM ID: 1 10,000 -<50,000 CFU/ml Normal urogenital sade Normal [facility] Comment on above: Performed By: #### 5 8410-2 #### [facility] CLIA [id number] [address] [place] [address] [place] C. trachomatis+N. gonorrhoea e DNA MICHAEL+probe Ql (Unsp spec)on 12-13-2024 C. trachomatis rRNA MICHAEL+probe Ql (Unsp spec) Not detected Normal Not detected [facility] Comment on above: Order Comment: Speci men Type: BLOOD SPECIMEN Ordering Facility: [facility] Address: [address] [place] [address] Performed By: #### 5 8410-2 #### [facility] CLIA [id number] [address] [place] [address] [place] N. gonorrhoeae rRNA [place]HAEL+probe Ql (Unsp spec) Not detected Normal Not detected [facility] Comment on above: Order Comment: Speci men Type: BLOOD SPECIMEN Ordering Facility: [facility] Address: [address] [place] [address] Performed By: #### 5 8410-2 #### [facility] CLIA [id number] [address] [place] [address] [place] HIGH RISK HUMAN PAPILLOMA ANN (HPV), PCR FOR DETECTION AND GENOTYPINGon 12-13-2024 HPV 16 Ag Ql (Unsp spec) Not detected Normal Not detected [facility] Comment on above: Order Comment: Speci men Type: FLUID SPECIMEN Ordering Facility: [facility] Address: [address] [place] [address] Performed By: #### H PVHRT #### [facility] CLIA [id number] [address] [place] [address] [place] HPV 18 Ag Ql (Unsp spec) Not detected Normal Not detected [facility] Comment on above: Order Comment: Speci men Type: FLUID SPECIMEN Ordering Facility: [facility] Address: [address] [place] [address] Performed By: #### H PVHRT #### [facility] CLIA [id number] [address] [place] [address] [place] HPV 31+33+35+39+45+51+52 +56+58+59+66+68 DNA [place]HAEL+probe Ql (Cvx) Not detected Normal Not detected [facility] Comment on above: Order Comment: Speci men Type: FLUID SPECIMEN Ordering Facility: [facility] Address: [address] [place] [address] Result Comment: High Risk HPV Other Type includes HPV types 31, 33, 35, 39, 45, 51, 52, 56, 58, 59, 66 and 68. Performed By: #### H PVHRT #### [facility] CLIA [id number] [address] [place] [address] [place] PAP TESTon 12-13-2024 ADEQUACY Normal [facility] Comment on above: Order Comment: Speci men Type: FLUID SPECIMEN Ordering Facility: [facility] Address: [address] [place] [address] Result Comment: Sati sfactory for interpretation. Transformation zone present Performed By: #### L [id number] #### [facility] CLIA [id number] [address] [place] [address] [place] [facility] CLIA [id number] [address] [place] [address], [address] [place] [address] [place] CASE REPORT Normal [facility] Comment on above: Order Comment: Speci men Type: FLUID SPECIMEN Ordering Facility: [facility] Address: [address] [place] [address] Result Comment: Gyne cologic Cytology Report Case: [id number] Authorizing Provider: Sadaf Silveira APRN.SPECIAL EDUCATION RESOURCE TEACHER Collected: 12/13/2024 03:07 PM Ordering Location: OB/Gynecology Received: 12/13/2024 04:40 PM First Screen: Sangita Gould, CT, ASCP Pathologist: Love Muniz MD Specimen: Pap Test, ThinPrep, Cervix Performed By: #### L [id number] #### [facility] CLIA [id number] [address] [place], [place] [address] [place] [facility] CLIA [id number] [address] [place] [address] 3, [address] [place], [place] [address] [place] CLINICAL HISTORY, CYTOLOGY, HOSE INSPECTOR AND PATCHER Routine Exam Normal [facility] Comment on above: Order Comment: Speci men Type: FLUID SPECIMEN Ordering Facility: [facility] Address: [address] [place] [address] Performed By: #### L [id number] #### [facility] CLIA [id number] [address] [place] [address] [place] [facility] CLIA [id number] [address] [place] [address], [address] [place], [place] [address] [place] CYTOLOGY PAP OTHER INTERPRETATION Predominance of coccobacilli consistent with shift in vaginal sade. Normal [facility] Comment on above: Order Comment: Speci men Type: FLUID SPECIMEN Ordering Facility: [facility] Address: [address] [place] [address] Performed By: #### L [id number] #### [facility] CLIA [id number] [address] [place] [address] [place] [facility] CLIA [id number] [address] [place] [address], [address] [place], [place] [address] [place] FINAL PERFORMING LAB Normal [facility] Comment on above: Order Comment: Speci men Type: FLUID SPECIMEN Ordering Facility: [facility] Address: [address] [place] [address] Result Comment: Tech nical component, healthcare project manager screening performed at: [facility], [address] [place] [address], [address] [place] [id number] CLIA: [id number] Diagnostic interpretation performed at: [facility], [address] [place], [place] [address] CLIA# [id number] Prompt Care Rn: Edu Steele MD Performed By: #### L [id number] #### [facility] CLIA [id number] [address] [place], [place] [address] [place] [facility] CLIA [id number] [address] [place] [address], [address] [place], [place] [address] [place] INTERPRETATION, CYTOLOGY, HOSE INSPECTOR AND PATCHER Abnormal [facility] Comment on above: Order Comment: Speci men Type: FLUID SPECIMEN Ordering Facility: [facility] Address: [address] [place] [address] Result Comment: Atyp ical squamous cells of undetermined significance (ASC-US). at 1525 EDT Performed By: #### L [id number] #### [facility] CLIA [id number] [address] [place] [address] [place] [facility] CLIA [id number] [address] [place] [address], [address] [place], [place] [address] [place] LMP 10/04/2024 Normal [facility] Comment on above: Order Comment: Speci men Type: FLUID SPECIMEN Ordering Facility: [facility] Address: [address] [place] [address] Performed By: #### L [id number] #### [facility] CLIA [id number] [address] [place], [place] [address] [place] [facility] CLIA [id number] [address] [place] [address], [address] [place], [place] [address] [place] PAP DISCLAIMER COMMENT The Pap Smear is a screening test for cervical cancer. False negative results occur with all screening tests, emphasizing the need for rescreening at recommended intervals, and clinical correlation. Normal [facility] Comment on above: Order Comment: Speci men Type: FLUID SPECIMEN Ordering Facility: [facility] Address: [address] [place] [address] Performed By: #### L [id number] #### [facility] CLIA [id number] [address] [place] [address] LABORATORY CLIA [id number] [address] [place] [address], [address] [place] [address] [place] PAP GENERAL CATEGORIZATION Epithelial Cell Abnormality Normal [facility] Comment on above: Order Comment: Speci men Type: FLUID SPECIMEN Ordering Facility: [facility] Address: [address] [place] [address] Performed By: #### L [id number] #### [facility] CLIA [id number] [address] [place] [address] LABORATORY CLIA [id number] [address] [place] [address], [address] [place] [address] [place] PAP DIRECTOR SOFTWARE COMMENT This specimen has be en analyzed by the FDA-approved Sensory Analytics System, which uses digital imaging and an enhanced artificial intelligence image analysis algorithm to identify ingram of interest on the microscopic slide, to assist the form grader and pathologist in evaluating cells on ThinPrep Pap tests. Following analysis, ingram of interest on the microscopic slide selected by the algorithm are reviewed by a form grader. If a sample requires hierarchical review, the pathologist will review the same ingram of interest selected by the algorithm prior to final interpretation. Normal [facility] Comment on above: Order Comment: Speci men Type: FLUID SPECIMEN Ordering Facility: [facility] Address: [address] [place] [address] Performed By: #### L [id number] #### [facility] CLIA [id number] [address] [place] [address] LABORATORY CLIA [id number] [address] [place] [address], [address] [place] [address] OF JOE TRICHOMONAS VAGINALIS NAATon 12-13-2024 T. vaginalis DNA MICHAEL+probe Ql (Unsp spec) Not detected Normal Not detected [facility] Comment on above: Order Comment: Speci men Type: BLOOD SPECIMEN Ordering Facility: [facility] Address: [address] [place] [address], [place] [address] Performed By: #### 5 8410-2 #### [facility] NOE [id number] [address] [place] [address] [facility] Gage 12-12-2024 [facility] (OB[facility]) JASON SIDDIQI ([id number]) 1995 F Date Time Provider Department 12/12/24 SADAF SILVEIRA OBGYWM During your visit today, we recorded the following information about you: Melly Mckeon LPN 12/12/2024 3:28 PM Signed Phone call placed to x3 number listed on chart, attempted to complete New ob intake questions, never seen TR location, no history. [phone] mobile number no answer, brief message left. [phone]- number no longer in service [phone]- name Rosendo Gomez, no message left. Melly Mckeon LPN Allergies As of Date: 12/12/2024 (No Known Allergies) Date Reviewed: 11/18/2015 Reviewed by: Sharri Feng (Generation Technologist), [facility] - Fully Assessed Reason for Visit: Patient Update [1234] Prescriptions as of 12/12/2024 - OMEPRAZOLE ORAL Take by mouth. - LORATADINE ORAL Take by mouth. - triamcinolone acetonide (KENALOG) 0.1 % cream Apply 1 application to affected area three times daily. Apply sparingly to area for rash/itching. Problem List As Of Date: 12/12/2024 (None) Encounter Status:Closed by MELLY MCKEON on 12/12/24 Normal [facility] Office Visit Reporton 2023 Office Visit Report [facility] [address] [place] [id number] OFFICE VISIT Date of Service: 04/16/23 MR#: [id number] Acct: [id number] Patient: JASON SIDDIQI Rep #: [id number] : 1995 Provider: KANA Chen Age/Sex: 27/F Location: [facility] Status: Signed Intake Vital Signs 11/10/22 20:03 Height 5 ft 9 in Weight: 348 lb 6.4 oz BMI 51.4 BP 173/100 H Respiration 16 Pulse 89 Temp 97.3 F L Temp Source Temporal Pulse Oximetry (%) 98 Intake Visit Reasons: TB READ Allergies No Known Allergies Allergy (Verified 11/10/22 20:02) Nursing Note left forearm with red spot where PPD was injected but 0mm of induration noted. negative test. paperwork completed and given to pt. copy scanned into pt chart. 04/16/23 1308 Date Jorge Sternigncarmen Signature: Date (if applicable) CC: Normal [facility] Office Visit Reporton 2023 Office Visit Report [facility] [address] [place] [address] OFFICE VISIT Date of Service: 04/14/23 MR#: [id number] Acct: [id number] Patient: JASON SIDDIQI Rep #: [id number] : 1995 Provider: KANA Chen Age/Sex: 27/F Location: [facility] Status: Signed Intake Vital Signs 11/10/22 20:03 Height 5 ft 9 in Weight: 348 lb 6.4 oz BMI 51.4 BP 173/100 H Respiration 16 Pulse 89 Temp 97.3 F L Temp Source Temporal Pulse Oximetry (%) 98 Intake Visit Reasons: TB TEST/PRE EMP/NON DOT/DRUG SCREEN/GENIE AMSTER Allergies No Known Allergies Allergy (Verified 11/10/22 20:02) Office Procedures PPD Procedure TB Med Used: Tuberculin PPD 5 tub. unit/0.1 mL intradermal injection solution was administered Lot number: [id number] Oyster Picker: sanofi pasteur date: 04/22/26 PPD Location: Left forearm Date PPD Placed: 04/14/23 Time PPD Placed: 10:12 PPD Placed By: Mary Medina 04/14/23 1413 Date Jorge ROGER Cosigner Signature: Date (if applicable) CC: Normal [facility] Urgent Care Visit Reporton 0 04-14-2023 Urgent Care Visit Report [facility] [address], [address] [place] [address] OFFICE VISIT Date of Service: 04/14/23 MR#: [id number] Acct: [id number] Name: JASON SIDDIQI Rep #: [id number] : 1995 Provider: KANA Chen Age/Sex: 27/F Location: [facility] Status: Signed Intake Vital Signs 11/10/22 20:03 Height 5 ft 9 in Intake Visit Reasons: PRE EMP/NON DOT/PHYSICAL/GENIE DEMARCO Allergies No Known Allergies Allergy (Verified 11/10/22 20:02) [facility] Medical History Barretts esophagus Dysphagia GERD (gastroesophageal reflux disease) Headache HTN (hypertension) Morbid obesity Surgical History History of esophagogastroduodenoscopy (EGD) Family History Mother Arthritis Diabetes Cancer Thyroid Thyroid disorder Father Heart disease CVA (cerebral vascular accident) Arthritis Social History Smoking Status: Never smoker second hand exposure: No alcohol intake: never substance use type: does not use caffeine: Yes what type of physical activity do you participate in: none frequency: does not exercise seatbelt use: always HPI HPI Details: JASON SIDDIQI, is a 27 F who presents to the office today for Office Procedures Physical Exam Coding PE Coding Pre-employment PE: Yes Coding Level of Care Code No Charge Diagnoses Pre-employment examination Z02.1 Assessment and Plan Assessment and Plan (1) Pre-employment examination: Status: Acute 04/14/23 1006 Date Jorge Weber Signature: Date (if applicable) CC: Normal [facility] Emergency Department Summary on 11-10-2022 Emergency Department Summary [facility] Medical Records Department [address] [place] [id number] Emergency Department Summary 11/10/22 MR#: [id number] Acct: [id number] Name: JASON SIDDIQI Rep #: [id number] : 1995 27 From: Jack Hinds MD PCP: RASHEEDA Hyman Status:REG ER Location: ED HPI History of Present Illness Chief Complaint: Back Narrative Narrative: 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 She has no radiation. No bowel bladder compromise or urinary retention symptoms. [facility] Medical History Barretts esophagus Dysphagia GERD (gastroesophageal reflux disease) Headache HTN (hypertension) Morbid obesity Home Medications naproxen 500 mg tablet (Naprosyn) 500 mg PO BID PRN pain #20 tabs 11/10/22 [Rx Last Taken Unknown] tizanidine 4 mg tablet 4 mg PO Q8H PRN muscle spasticity #10 tabs 11/10/22 [Rx Last Taken Unknown] Allergy/AdvReac Type Severity Reaction Status Date / Time No Known Allergies Allergy Verified 11/10/22 20:02 Family History Mother Arthritis Diabetes Cancer Thyroid Thyroid disorder Father Heart disease CVA (cerebral vascular accident) Arthritis Surgical History History of esophagogastroduodenoscopy (EGD) Social History Smoking Status: Never smoker second hand exposure: No alcohol intake: never substance use type: does not use caffeine: Yes what type of physical activity do you participate in: none frequency: does not exercise seatbelt use: always ROS ROS ED ROS Narrative Past medical history: Reviewed Medications: Reviewed Social history: Noncontributory Review of systems: All systems negative except as indicated General: No fever Cardiovascular: No chest pain Respiratory: No shortness of breath or cough Gastrointestinal: No abdominal pain, nausea vomiting or diarrhea Genitourinary: No dysuria Musculoskeletal: Back pain as in HPI Skin: No rash Neurological: No radicular symptoms EXAM Physical Exam Narrative Exam Narrative: Vitals reviewed General: Patient appears in some discomfort HEENT: Moist mucous membranes Neck: Nontender Cardiovascular normal heart rate Respiratory: No respiratory difficulty speaking in full sentences Abdomen: Soft and nontender, there is no suprapubic mass or pain Back: There is some tenderness over the lumbar region, pain is spinal and paraspinal both. Extremities: Moves all extremities without joint pain or signs of trauma Neurological: There is normal plantar flexion and dorsiflexion of both feet and great toes. Patellar and Achilles reflexes are normal. Normal strength and sensation. Negative straight leg test. Skin: No rash Psychiatric: Slightly anxious. Const Vital Signs: 11/10/22 20:03 Temperature 97.3 F L Temperature Source Temporal Pulse Rate 89 Respiratory Rate 16 Blood Pressure 173/100 H Blood Pressure Mean 124 Pulse Ox 98 MDM MDM MDM Narrative Medical decision making narrative: Patient has no radicular symptoms or red flags. I am not worried about cauda equina she has no fever chills or any other signs symptoms of discitis or osteomyelitis. A stat MRI is not needed. Patient has lifting injury and no obvious fall or trauma therefore x-rays not needed. Patient appears well I will discharge in stable condition. I will give her muscle relaxants and anti- inflammatories for home. I told her about proper lifting techniques Discharge Plan Triage Chief Complaint: Back ED Provider: Jack Hinds Dx/Rx/DC Orders Clinical Impression: Back pain, Acute lumbar myofascial strain Instructions: Back Exercises: Knee Lift, Back Exercises: Leg Pull, Back Exercises: Lower Back Stretch Prescriptions: New naproxen [Naprosyn] 500 mg tablet 500 mg PO BID PRN (Reason: pain) Qty: 20 0RF tizanidine 4 mg tablet 4 mg PO Q8H PRN (Reason: muscle spasticity) Qty: 10 0RF Primary Care Provider: Jamaica Burgess NP Referrals: Jamaica Burgess NP, PROFESSOR OF PUBLIC ADMINISTRATION-C [Primary Care Provider] - Disposition Disposition: Home, Self Care What to do if you have Problems For any increased pain, shortness of breath, bleeding, nausea or vomiting, chest pain, or any unexpected problems, contact your Primary Care Provider. Call [facility] ([phone]) or report to the closest Emergency Room. Call 911 if necessary. 11/10/222140 Cosigner Signature (if applicable): CC: RASHEEDA Burgess Signed Normal [facility] Warehouse Puller Cytology Reporton 2021 Warehouse Puller Cytology Report . Pathology Reports Accession: Collected Date/Time: Received Date/Time: Pathologist: [id number] 12/03/2021 11:57 EDT 12/03/2021 18:00 EDT Warehouse Puller Cytology Report SPECIMEN: Specimen Description: Liquid Prep Reflex ASCUS Specimen: Cervical/Endocervical Screening or Diagnostic: Screening RELEVANT HISTORY: LMP: 11-02-21 [id number] SPECIMEN ADEQUACY: SATISFACTORY FOR EVALUATION ENDOCERVICAL/TRANSFORMATION AL ZONE COMPONENT PRESENT INTERPRETATION/RESULTS: NEGATIVE FOR INTRAEPITHELIAL LESION OR MALIGNANCY COMMENT: This Pap Test was successfully processed and evaluated with the assistance of the [employer] ThinPrep Test Imaging System. Electronically Signed by Pathology report verified by [facility] Screened by: KK Electronically signed by Jeanna STRICKLAND (ASCP) Sign-Out Date: 12/11/2021 10:52 Performing Lab: [facility], [address] [place] [address] Disclaimer The Pap test is a screening test for cervical cancer. As evidenced by published data, it is subject to both inherent false negative and false positive results. Your patient's results should be interpreted in context with pertinent clinical history including gynecological examination. Normal [facility] ([place]) .GFRon 12-08-2021 GFR 91 ml/min/1.73sqm Normal [facility] ([place]) Comment on above: Result Comment: GFR Population mean for , Non- Americans Ages 20-29 = 116 mL/min/1.73 sq.m. Ages 30-39 = 107 mL/min/1.73 sq.m. Ages 40-49 = 99 mL/min/1.73 sq.m. Ages 50-59 = 93 mL/min/1.73 sq.m. Ages 60-69 = 85 mL/min/1.73 sq.m. Ages 70+ = 75 mL/min/1.73 sq.m. Chronic Kidney Disease: Less than 60 mL/min/1.73 square meters End Stage Renal Disease: Less than 15 mL/min/1.73 square meters Performed By: #### T SH, CMP, GFR, LIPID #### [address] [address] #### HCV1 #### [place] [address] GFR Non- 75 ml/min/1.73sqm Normal [facility] ([place]) Comment on above: Result Comment: GFR Population mean for , Non- Americans Ages 20-29 = 116 mL/min/1.73 sq.m. Ages 30-39 = 107 mL/min/1.73 sq.m. Ages 40-49 = 99 mL/min/1.73 sq.m. Ages 50-59 = 93 mL/min/1.73 sq.m. Ages 60-69 = 85 mL/min/1.73 sq.m. Ages 70+ = 75 mL/min/1.73 sq.m. Chronic Kidney Disease: Less than 60 mL/min/1.73 square meters End Stage Renal Disease: Less than 15 mL/min/1.73 square meters Performed By: #### T SH, CMP, GFR, LIPID #### [place] [address] #### HCV1 #### [address] [address] CMPon 12-08-2021 Albumin Level 3.5 G/dL Normal 3.5-5.0 [facility] [place] Comment on above: Performed By: #### T SH, CMP, GFR, LIPID #### [place] [address] #### HCV1 #### [place] [address] Albumin/Globulin [Mass ratio] 1.0 {ratio} Low 1.1-2.5 [facility] ([place] Comment on above: Performed By: #### T SH, CMP, GFR, LIPID #### [place] [address] #### HCV1 #### [address] [address] ALP [Catalytic activity/Vol] 72 U/L Normal 40-135 [facility] ([place] Comment on above: Performed By: #### T SH, CMP, GFR, LIPID #### [place] [address] #### HCV1 #### [address] [address] ALT [Catalytic activity/Vol] 54 U/L Normal 14-59 [facility] ([place]) Comment on above: Performed By: #### T SH, CMP, GFR, LIPID #### [place] [address] #### HCV1 #### [address] [address] AST [Catalytic activity/Vol] 40 U/L Normal 10-40 [facility] ([place]) Comment on above: Performed By: #### T SH, CMP, GFR, LIPID #### [place] [address] #### HCV1 #### [address] [address] Bili Total 1.4 mg/dL High 0.2-1.0 [facility] ([place]) Comment on above: Result Comment: Use of this assay is not recommended for patients undergoing treatment with eltrombopag due to the potential for falsely elevated results. Performed By: #### T SH, CMP, GFR, LIPID #### [address] [address] #### HCV1 #### [address] [address] BUN/Creatinine Ratio 10 ratio Normal 7-27 [facility] ([place]) Comment on above: Performed By: #### T SH, CMP, GFR, LIPID #### [place] [address] #### HCV1 #### [address] [address] Calcium [Mass/Vol] 8.4 mg/dL Normal 8.4-10.2 [facility] ([place]) Comment on above: Performed By: #### T SH, CMP, GFR, LIPID #### [place] [address] #### HCV1 #### [address] [address] Chloride [Moles/Vol] 102 mmol/L Normal 98-107 [facility] ([place] Comment on above: Performed By: #### T SH, CMP, GFR, LIPID #### [address] [address] #### HCV1 #### [address] [address] CO2 [Moles/Vol] 30 mmol/L High 22-29 [facility] ([place] Comment on above: Performed By: #### T SH, CMP, GFR, LIPID #### [address] [address] #### HCV1 #### [address] [address] Creatinine [Mass/Vol] 0.90 mg/dL Normal 0.55-1.02 [facility] ([place] Comment on above: Performed By: #### T SH, CMP, GFR, LIPID #### [place] [address] #### HCV1 #### [address] [address] Electrolyte Balance 8.0 mEq/L Normal 4.0-15.0 [facility] ([place]) Comment on above: Performed By: #### T SH, CMP, GFR, LIPID #### [place] [address] #### HCV1 #### [place] [address] Globulin 3.5 G/dL Normal [facility] ([place] Comment on above: Performed By: #### T SH, CMP, GFR, LIPID #### [place] [address] #### HCV1 #### [place] [address] Glucose [Mass/Vol] 112 mg/dL High 70-105 [facility] ([place] Comment on above: Performed By: #### T SH, CMP, GFR, LIPID #### [place] [address] #### HCV1 #### [address] [address] Potassium [Moles/Vol] 3.7 mmol/L Normal 3.5-5.1 [facility] ([place] Comment on above: Performed By: #### T SH, CMP, GFR, LIPID #### [place] [address] #### HCV1 #### [address] [address] Sodium [Moles/Vol] 140 mmol/L Normal 136-145 [facility] ([place] Comment on above: Performed By: #### T SH, CMP, GFR, LIPID #### [place] [id number] #### HCV1 #### [place] [address] Total Protein 7.0 G/dL Normal 6.4-8.2 [facility] [place] Comment on above: Performed By: #### T SH, CMP, GFR, LIPID #### [address] [address] #### HCV1 #### [place] [address] Urea nitrogen [Mass/Vol] 9 mg/dL Normal 7-18 [facility] [place] Comment on above: Performed By: #### T SH, CMP, GFR, LIPID #### [place] [address] #### HCV1 #### [place] [address] HCVon 12-08-2021 Hep C Ab Non-Reactive Normal Non-Reactive [facility] ([place] Comment on above: Performed By: #### T SH, CMP, GFR, LIPID #### [place] [address] #### HCV1 #### [place] [address] Hep C Ab Int Normal [facility] ([place] Comment on above: Result Comment: Nonr eactive: Samples with a value < 0.80 are considered nonreactive (negative) for antibodies to HCV. A negative test result does not exclude the possibility of exposure to or infection with HCV. HCV antibodies may be undetectable in some stages of the infection and in some clinical conditions. See Interp Performed By: #### T SH, CMP, GFR, LIPID #### [place] [address] #### HCV1 #### [place] [address] LABORATORYOrdered By: Laura Mendoza on 12-08-2021 Albumin BCP dye [Mass/Vol] 3.5 G/dL Invalid Interpretation Code 3.5 - 5.0 G/dL AO ADM SS Albumin/Globulin [Mass ratio] 1.0 {ratio} Invalid Interpretation Code 1.1 - 2.5 ratio AO ADM SS ALP [Catalytic activity/Vol] 72 U/L Invalid Interpretation Code 40 - 135 U/L AO ADM SS ALT With P-5'-P [Catalytic activity/Vol] 54 U/L Invalid Interpretation Code 14 - 59 U/L AO ADM SS AST With P-5'-P [Catalytic activity/Vol] 40 U/L Invalid Interpretation Code 10 - 40 U/L AO ADM SS Bilirubin [Mass/Vol] 1.4 mg/dL Invalid Interpretation Code 0.2 - 1.0 mg/dL AO ADM SS Calcium [Mass/Vol] 8.4 mg/dL Invalid Interpretation Code 8.4 - 10.2 mg/dL AO ADM SS Chloride [Moles/Vol] 102 mmol/L Invalid Interpretation Code 98 - 107 mmol/L AO ADM SS Cholesterol [Mass/Vol] 199 mg/dL Invalid Interpretation Code 0 - 200 mg/dL AO ADM SS Cholesterol in HDL [Mass/Vol] 38 mg/dL Invalid Interpretation Code 40 - 60 mg/dL AO ADM SS Cholesterol in LDL [Mass/Vol] 135 mg/dL Invalid Interpretation Code 0 - 130 mg/dL AO ADM SS CO2 [Moles/Vol] 30 mmol/L Invalid Interpretation Code 22 - 29 mmol/L AO ADM SS Creatinine [Mass/Vol] 0.90 mg/dL Invalid Interpretation Code 0.55 - 1.02 mg/dL AO ADM SS Electrolyte Balance 8.0 mEq/L Invalid Interpretation Code 4.0 - 15.0 mEq/L AO ADM SS Globulin 3.5 G/dL Invalid Interpretation Code AO ADM SS Glucose [Mass/Vol] 112 mg/dL Invalid Interpretation Code 70 - 105 mg/dL AO ADM SS Potassium [Moles/Vol] 3.7 mmol/L Invalid Interpretation Code 3.5 - 5.1 mmol/L AO ADM SS Protein [Mass/Vol] 7.0 G/dL Invalid Interpretation Code 6.4 - 8.2 G/dL AO ADM SS Sodium [Moles/Vol] 140 mmol/L Invalid Interpretation Code 136 - 145 mmol/L AO ADM SS Triglyceride [Mass/Vol] 128 mg/dL Invalid Interpretation Code 0 - 150 mg/dL AO ADM SS TSH Qn 1.60 m[IU]/L Invalid Interpretation Code 0.36 - 3.74 mcIU/mL AO ADM SS Urea nitrogen [Mass/Vol] 9 mg/dL Invalid Interpretation Code 7 - 18 mg/dL AO ADM SS Urea nitrogen/Creatinine [Mass ratio] 10 ratio Invalid Interpretation Code 7 - 27 ratio AO ADM SS LABORATORYOrdered By: SYSTEM SYSTEM on 12-08-2021 GFR 91 ml/min/1.73sqm Invalid Interpretation Code AO Chemistry S GFR Non- 75 ml/min/1.73sqm Invalid Interpretation Code AO Chemistry S LABORATORYOrdered By: Sada Art on 12-08-2021 HCV Ab IA Ql Non-Reactive (12/08/21 10:06 AM) Invalid Interpretation Code Non-Reactive AH ADM SS HCV Ab IA Ql Nonreactive: Samples with a value < 0.80 are considered nonreactive (negative) for antibodies to HCV.A negative test result does not exclude the possibility of exposure to or infection with HCV. HCV antibodies may be undetectable in some stages of the infection and in some clinical conditions. Invalid Interpretation Code AH Chemistry S LIPIDon 12-08-2021 Cholesterol [Mass/Vol] 199 mg/dL Normal 0-200 [facility] ([place] Comment on above: Result Comment: Chol esterol Reference Interval: Less than 200 Desirable 200-239 Borderline high risk 240 and above High risk Performed By: #### T SH, CMP, GFR, LIPID #### [address] [address] #### HCV1 #### [address] [address] Cholesterol in HDL [Mass/Vol] 38 mg/dL Low 40-60 [facility] ([place] Comment on above: Performed By: #### T SH, CMP, GFR, LIPID #### [address] [address] #### HCV1 #### [address] [address] Cholesterol in LDL [Mass/Vol] 135 mg/dL High 0-130 [facility] ([place] Comment on above: Performed By: #### T SH, CMP, GFR, LIPID #### [address] [address] #### HCV1 #### [address] [address] Triglyceride [Mass/Vol] 128 mg/dL Normal 0-150 [facility] ([place] Comment on above: Result Comment: Trig lyceride Reference Interval: Less than 150 Normal 150-199 Borderline high risk 200-499 High risk 500 or higher Very high risk Performed By: #### T SH, CMP, GFR, LIPID #### [address] [address] #### HCV1 #### [place] [address] TSHon 12-08-2021 TSH Qn 1.60 m[IU]/L Normal 0.36-3.74 [facility] ([place] Comment on above: Performed By: #### T SH, CMP, GFR, LIPID #### [address] [address] #### HCV1 #### [place] [address] CTPCRon 12-04-2021 C. trachomatis Interp Normal See CT Interp N [facility] ([place]) Comment on above: Result Comment: C. t rachomatis DNA not detected. Specimen is presumptive negative for C. trachomatis. A negative result does not preclude C. trachomatis infection because results depend on adequate specimen collection, absence of inhibitors, and sufficient DNA to be detected. See CT Interp N Performed By: #### C TPCR, NGPCR1 #### [place] [address] C.trachomatis PCR Negative Normal Negative [facility] ([place]) Comment on above: Result Comment: Valero sport tube received with two swabs. Review collection procedure. Inappropriate collection may cause aberrant results. Molecular (PCR) assay performed on the Ronald Tika 4800 system. Performed By: #### C TPCR, NGPCR1 #### [place] [address] Chlam Source Cervix Normal [facility] ([place] Comment on above: Performed By: #### C TPCR, NGPCR1 #### [place] [address] [id number] 12-04-2021 GC PCR Source Cervix Normal [facility] ([place] Comment on above: Performed By: #### C TPCR, NGPCR1 #### [place] [id number] [address] [place] [address] N. gonorrhoeae (PCR) Negative Normal Negative [facility] ([place] Comment on above: Result Comment: Valero sport tube received with two swabs. Review collection procedure. Inappropriate collection may cause aberrant results. Molecular (PCR) assay performed on the [employer] Tika 4800 System. Performed By: #### C TPCR, NGPCR1 #### [address] [address] N. gonorrhoeae Interp Normal See NG Interp N [facility] ([place] Comment on above: Result Comment: N. g onorrhoeae DNA not detected. Specimen is presumptive negative for N. gonorrhoeae. A negative result does not preclude Neisseria gonorrhoeae infection because results depend on adequate specimen collection, absence of inhibitors, and sufficient DNA to be detected. See NG Interp N Performed By: #### C TPCR, NGPCR1 #### [address] [address] LABORATORYOrdered By: Racheal Lowery on 12-03-2021 C. trachomatis DNA MICHAEL+probe Ql (Unsp spec) Negative 2 (12/03/21 11:57 AM) Invalid Interpretation Code Negative AH Auto Viro/Sero SS Comment on above: Result Comment: Valero sport tube received with two swabs. Review collection procedure. Inappropriate collection may cause aberrant results. C. trachomatis DNA MICHAEL+probe Ql (Unsp spec) C. trachomatis DNA not detected. Specimen is presumptive negative forC. trachomatis.A negative result does not preclude C. trachomatis infection becauseresults depend on adequate specimen collection, absence of inhibitors,and sufficient DNA to be detected. Invalid Interpretation Code See CT Interp N AH Auto Viro/Sero SS N. gonorrhoeae DNA MICHAEL+probe Ql (Unsp spec) Negative 1 (12/03/21 11:57 AM) Invalid Interpretation Code Negative AH Auto Viro/Sero SS Comment on above: Result Comment: Valero sport tube received with two swabs. Review collection procedure. Inappropriate collection may cause aberrant results. N. gonorrhoeae DNA MICHAEL+probe Ql (Unsp spec) N. gonorrhoeae DNA not detected. Specimen is presumptive negative forN. gonorrhoeae. A negative result does not preclude Neisseria gonorrhoeaeinfection because results depend on adequate specimen collection, absenceof inhibitors, and sufficient DNA to be detected. Invalid Interpretation Code See NG Interp N Auto Viro/Sero SS Laboratory - Specimen inform ationOrdered By: Racheal Lowery on 12-03-2021 Specimen source Nom (Unsp spec) Cervix (12/03/21 11:57 AM) Invalid Interpretation Code Auto Viro/Sero SS .Auto Diffon 10-23-2021 Basophil, Absolute 0.1 10 3/mcL Normal 0.0-0.2 [facility] ([place]) Comment on above: Performed By: #### T SH, CMP, GFR, LIPID #### [address] [address] #### HCV1 #### [address] [address] Basophils/100 WBC (Bld) 0.7 % Normal 0.0-2.5 [facility] ([place]) Comment on above: Performed By: #### T SH, CMP, GFR, LIPID #### [address] [address] #### HCV1 #### [address] [address] Eosinophil, Absolute 0.1 10 3/mcL Normal 0.0-0.4 [facility] ([place]) Comment on above: Performed By: #### T SH, CMP, GFR, LIPID #### [address] [address] #### HCV1 #### [address] [address] Eosinophils/100 WBC (Bld) 1.7 % Normal 0.0-7.0 [facility] ([place]) Comment on above: Performed By: #### T SH, CMP, GFR, LIPID #### [address] [address] #### HCV1 #### [address] [address] Lymphocyte, Absolute 2.0 10 3/mcL Normal 0.8-3.9 [facility] ([place]) Comment on above: Performed By: #### T SH, CMP, GFR, LIPID #### [address] [address] #### HCV1 #### [address] [address] Lymphocytes/100 WBC (Bld) 23.6 % Normal 10.0-50.0 [facility] [place] Comment on above: Performed By: #### T SH, CMP, GFR, LIPID #### [address] [address] #### HCV1 #### [address] [address] Monocyte, Absolute 0.5 10 3/mcL Normal 0.2-1.0 [facility] ([place] Comment on above: Performed By: #### T SH, CMP, GFR, LIPID #### [place] [address] #### HCV1 #### [address] [address] Monocytes/100 WBC (Bld) 6.3 % Normal 1.7-13.0 [facility] [place] Comment on above: Performed By: #### T SH, CMP, GFR, LIPID #### [address] [address] #### HCV1 #### [address] [address] Neutrophils/100 WBC (Bld) 67.7 % Normal 37.0-80.0 [facility] [place] Comment on above: Performed By: #### T SH, CMP, GFR, LIPID #### [address] [address] #### HCV1 #### [address] [address] .GFRon 10-23-2021 GFR 112 ml/min/1.73sqm Normal [facility] ([place] Comment on above: Result Comment: GFR Population mean for , Non- Americans Ages 20-29 = 116 mL/min/1.73 sq.m. Ages 30-39 = 107 mL/min/1.73 sq.m. Ages 40-49 = 99 mL/min/1.73 sq.m. Ages 50-59 = 93 mL/min/1.73 sq.m. Ages 60-69 = 85 mL/min/1.73 sq.m. Ages 70+ = 75 mL/min/1.73 sq.m. Chronic Kidney Disease: Less than 60 mL/min/1.73 square meters End Stage Renal Disease: Less than 15 mL/min/1.73 square meters Performed By: #### T SH, CMP, GFR, LIPID #### [address] [address] #### HCV1 #### [address] [address] GFR Non- 93 ml/min/1.73sqm Normal [facility] ([place] Comment on above: Result Comment: GFR Population mean for , Non- Americans Ages 20-29 = 116 mL/min/1.73 sq.m. Ages 30-39 = 107 mL/min/1.73 sq.m. Ages 40-49 = 99 mL/min/1.73 sq.m. Ages 50-59 = 93 mL/min/1.73 sq.m. Ages 60-69 = 85 mL/min/1.73 sq.m. Ages 70+ = 75 mL/min/1.73 sq.m. Chronic Kidney Disease: Less than 60 mL/min/1.73 square meters End Stage Renal Disease: Less than 15 mL/min/1.73 square meters Performed By: #### T SH, CMP, GFR, LIPID #### [address] [address] #### HCV1 #### [address] [address] .MDWon 10-23-2021 Monocyte Distribution Width Not performed Normal 0.00-20.00 [facility] [place] Comment on above: Result Comment: MDW testing performed only on adult ER patients between the ages of 18-89 years. Performed By: #### T SH, CMP, GFR, LIPID #### [place] [address] #### HCV1 #### [address] [address] .NEUABSon 10-23-2021 Neutrophil, Absolute 5.6 10 3/mcL Normal 2.9-6.2 [facility] ([place] Comment on above: Performed By: #### T SH, CMP, GFR, LIPID #### [place] [address] #### HCV1 #### [address] [address] CBCon 10-23-2021 Erythrocyte distribution width (RBC) [Ratio] 14.6 % High 11.5-14.5 [facility] ([place] Comment on above: Performed By: #### T SH, CMP, GFR, LIPID #### [place] [address] #### HCV1 #### [place] [address] Hematocrit (Bld) [Volume fraction] 37.7 % Normal 37.0-47.0 [facility] [place] Comment on above: Performed By: #### T SH, CMP, GFR, LIPID #### [place] [address] #### HCV1 #### [place] [address] Hgb 12.7 G/dL Normal 12.0-16.0 [facility] ([place] Comment on above: Performed By: #### T SH, CMP, GFR, LIPID #### [place] [address] #### HCV1 #### [place] [address] MCH (RBC) [Entitic mass] 26.4 pg Low 27.0-31.2 [facility] ([place] Comment on above: Performed By: #### T SH, CMP, GFR, LIPID #### [place] [address] #### HCV1 #### [address] [address] MCHC 33.7 G/dL Normal 33.0-37.0 [facility] ([place]) Comment on above: Performed By: #### T SH, CMP, GFR, LIPID #### [address] [address] #### HCV1 #### [place] [address] MCV (RBC) [Entitic vol] 78.4 fL Low 80.0-94.0 [facility] ([place]) Comment on above: Performed By: #### T SH, CMP, GFR, LIPID #### [place] [address] #### HCV1 #### [place] [address] Platelet 355 10 3/mcL Normal 130-400 [facility] ([place]) Comment on above: Performed By: #### T SH, CMP, GFR, LIPID #### [place] [address] #### HCV1 #### [place] [address] Platelet mean volume (Bld) [Entitic vol] 7.4 fL Normal 7.4-10.4 [facility] [place] Comment on above: Performed By: #### T SH, CMP, GFR, LIPID #### [place] [address] #### HCV1 #### [place] [address] RBC 4.81 10 6/mcL Normal 4.20-5.40 [facility] ([place] Comment on above: Performed By: #### T SH, CMP, GFR, LIPID #### [place] [address] #### HCV1 #### [place] [address] WBC 8.3 10 3/mcL Normal 4.6-10.8 [facility] ([place] Comment on above: Performed By: #### T SH, CMP, GFR, LIPID #### [place] [address] #### HCV1 #### [address] [address] CMPon 10-23-2021 Albumin Level 3.5 G/dL Normal 3.5-5.0 [facility] ([place] Comment on above: Performed By: #### T SH, CMP, GFR, LIPID #### [place] [address] #### HCV1 #### [address] [address] Albumin/Globulin [Mass ratio] 0.9 {ratio} Low 1.1-2.5 [facility] ([place] Comment on above: Performed By: #### T SH, CMP, GFR, LIPID #### [place] [address] #### HCV1 #### [address] [address] ALP [Catalytic activity/Vol] 74 U/L Normal 40-135 [facility] ([place] Comment on above: Performed By: #### T SH, CMP, GFR, LIPID #### [place] [address] #### HCV1 #### [address] [address] ALT [Catalytic activity/Vol] 37 U/L Normal 14-59 [facility] ([place] Comment on above: Performed By: #### T SH, CMP, GFR, LIPID #### [address] [address] #### HCV1 #### [address] [address] AST [Catalytic activity/Vol] 23 U/L Normal 10-40 [facility] ([place] Comment on above: Performed By: #### T SH, CMP, GFR, LIPID #### [place] [address] #### HCV1 #### [address] [address] Bili Total 1.0 mg/dL Normal 0.2-1.0 [facility] ([place]) Comment on above: Result Comment: Use of this assay is not recommended for patients undergoing treatment with eltrombopag due to the potential for falsely elevated results. Performed By: #### T SH, CMP, GFR, LIPID #### [place] [address] #### HCV1 #### [place] [address] BUN/Creatinine Ratio 13 ratio Normal 7-27 [facility] ([place]) Comment on above: Performed By: #### T SH, CMP, GFR, LIPID #### [place] [address] #### HCV1 #### [address] [address] Calcium [Mass/Vol] 8.8 mg/dL Normal 8.4-10.2 [facility] ([place]) Comment on above: Performed By: #### T SH, CMP, GFR, LIPID #### [place] [address] #### HCV1 #### [address] [address] Chloride [Moles/Vol] 101 mmol/L Normal 98-107 [facility] ([place] Comment on above: Performed By: #### T SH, CMP, GFR, LIPID #### [place] [address] #### HCV1 #### [address] [address] CO2 [Moles/Vol] 27 mmol/L Normal 22-29 [facility] [place] Comment on above: Performed By: #### T SH, CMP, GFR, LIPID #### [place] [address] #### HCV1 #### [place] [id number] Creatinine [Mass/Vol] 0.75 mg/dL Normal 0.55-1.02 [facility] [place] Comment on above: Performed By: #### T SH, CMP, GFR, LIPID #### [address] [address] #### HCV1 #### [address] [address] Electrolyte Balance 11.0 mEq/L Normal 4.0-15.0 [facility] ([place]) Comment on above: Performed By: #### T SH, CMP, GFR, LIPID #### [address] [address] #### HCV1 #### [place] [address] Globulin 3.7 G/dL Normal [facility] ([place] Comment on above: Performed By: #### T SH, CMP, GFR, LIPID #### [place] [address] #### HCV1 #### [place] [address] Glucose [Mass/Vol] 106 mg/dL High 70-105 [facility] ([place] Comment on above: Performed By: #### T SH, CMP, GFR, LIPID #### [place] [address] #### HCV1 #### [address] [address] Potassium [Moles/Vol] 3.6 mmol/L Normal 3.5-5.1 [facility] [place] Comment on above: Performed By: #### T SH, CMP, GFR, LIPID #### [place] [address] #### HCV1 #### [address] [address] Sodium [Moles/Vol] 139 mmol/L Normal 136-145 [facility] ([place] Comment on above: Performed By: #### T SH, CMP, GFR, LIPID #### [place] [address] #### HCV1 #### [address] [address] Total Protein 7.2 G/dL Normal 6.4-8.2 [facility] [place] Comment on above: Performed By: #### T SH, CMP, GFR, LIPID #### [address] [address] #### HCV1 #### [address] [address] Urea nitrogen [Mass/Vol] 10 mg/dL Normal 7-18 [facility] [place] Comment on above: Performed By: #### T SH, CMP, GFR, LIPID #### [address] [address] #### HCV1 #### [place] [address] LABORATORYOrdered By: Cristina Spann on 10-23-2021 Albumin BCP dye [Mass/Vol] 3.5 G/dL Invalid Interpretation Code 3.5 - 5.0 G/dL AO ADM SS Albumin/Globulin [Mass ratio] 0.9 {ratio} Invalid Interpretation Code 1.1 - 2.5 ratio AO ADM SS ALP [Catalytic activity/Vol] 74 U/L Invalid Interpretation Code 40 - 135 U/L AO ADM SS ALT With P-5'-P [Catalytic activity/Vol] 37 U/L Invalid Interpretation Code 14 - 59 U/L AO ADM SS AST With P-5'-P [Catalytic activity/Vol] 23 U/L Invalid Interpretation Code 10 - 40 U/L AO ADM SS Bilirubin [Mass/Vol] 1.0 mg/dL Invalid Interpretation Code 0.2 - 1.0 mg/dL AO ADM SS Calcium [Mass/Vol] 8.8 mg/dL Invalid Interpretation Code 8.4 - 10.2 mg/dL AO ADM SS Chloride [Moles/Vol] 101 mmol/L Invalid Interpretation Code 98 - 107 mmol/L AO ADM SS CO2 [Moles/Vol] 27 mmol/L Invalid Interpretation Code 22 - 29 mmol/L AO ADM SS Creatinine [Mass/Vol] 0.75 mg/dL Invalid Interpretation Code 0.55 - 1.02 mg/dL AO ADM SS Electrolyte Balance 11.0 mEq/L Invalid Interpretation Code 4.0 - 15.0 mEq/L AO ADM SS Globulin 3.7 G/dL Invalid Interpretation Code AO ADM SS Glucose [Mass/Vol] 106 mg/dL Invalid Interpretation Code 70 - 105 mg/dL AO ADM SS Potassium [Moles/Vol] 3.6 mmol/L Invalid Interpretation Code 3.5 - 5.1 mmol/L AO ADM SS Protein [Mass/Vol] 7.2 G/dL Invalid Interpretation Code 6.4 - 8.2 G/dL AO ADM SS Sodium [Moles/Vol] 139 mmol/L Invalid Interpretation Code 136 - 145 mmol/L AO ADM SS Urea nitrogen [Mass/Vol] 10 mg/dL Invalid Interpretation Code 7 - 18 mg/dL AO ADM SS Urea nitrogen/Creatinine [Mass ratio] 13 ratio Invalid Interpretation Code 7 - 27 ratio AO ADM SS LABORATORYOrdered By: Laura Mendoza on 10-23-2021 Basophil, Absolute 0.1 103/mcL Invalid Interpretation Code 0.0 - 0.2 10^3/mcL AO Workflow SS Basophils/100 WBC (Bld) 0.7 % Invalid Interpretation Code 0.0 - 2.5 % AO Workflow SS Eosinophil, Absolute 0.1 103/mcL Invalid Interpretation Code 0.0 - 0.4 10^3/mcL AO Workflow SS Eosinophils/100 WBC (Bld) 1.7 % Invalid Interpretation Code 0.0 - 7.0 % AO Workflow SS Erythrocyte distribution width (RBC) [Ratio] 14.6 % Invalid Interpretation Code 11.5 - 14.5 % AO Workflow SS Hematocrit (Bld) [Volume fraction] 37.7 % Invalid Interpretation Code 37.0 - 47.0 % AO Workflow SS Hemoglobin (Bld) [Mass/Vol] 12.7 G/dL Invalid Interpretation Code 12.0 - 16.0 G/dL AO Workflow SS Lymphocyte, Absolute 2.0 103/mcL Invalid Interpretation Code 0.8 - 3.9 10^3/mcL AO Workflow SS Lymphocytes/100 WBC (Bld) 23.6 % Invalid Interpretation Code 10.0 - 50.0 % AO Workflow SS MCH (RBC) [Entitic mass] 26.4 pg Invalid Interpretation Code 27.0 - 31.2 pg AO Workflow SS MCHC 33.7 G/dL Invalid Interpretation Code 33.0 - 37.0 G/dL AO Workflow SS MCV (RBC) [Entitic vol] 78.4 fL Invalid Interpretation Code 80.0 - 94.0 fL AO Workflow SS Monocyte, Absolute 0.5 103/mcL Invalid Interpretation Code 0.2 - 1.0 10^3/mcL AO Workflow SS Monocytes/100 WBC (Bld) 6.3 % Invalid Interpretation Code 1.7 - 13.0 % AO Workflow SS Neutrophil, Absolute 5.6 103/mcL Invalid Interpretation Code 2.9 - 6.2 10^3/mcL AO Workflow SS Neutrophils/100 WBC (Bld) 67.7 % Invalid Interpretation Code 37.0 - 80.0 % AO Workflow SS Platelet mean volume (Bld) [Entitic vol] 7.4 fL Invalid Interpretation Code 7.4 - 10.4 fL AO Workflow SS Platelets (Bld) [#/Vol] 355 103/mcL Invalid Interpretation Code 130 - 400 10^3/mcL AO Workflow SS RBC (Bld) [#/Vol] 4.81 106/mcL Invalid Interpretation Code 4.20 - 5.40 10^6/mcL AO Workflow SS WBC 8.3 103/mcL Invalid Interpretation Code 4.6 - 10.8 10^3/mcL AO Workflow SS LABORATORYOrdered By: SYSTEM SYSTEM on 10-23-2021 GFR 112 ml/min/1.73sqm Invalid Interpretation Code AO Chemistry S GFR Non- 93 ml/min/1.73sqm Invalid Interpretation Code AO Chemistry S Monocyte distribution width Auto (Bld) [Entitic vol] Not Performed 1 *NA* (10/23/21 10:34 AM) Invalid Interpretation Code 0.00 - 20.00 AO Hematology S Comment on above: Result Comment: MDW testing performed only on adult ER patients between the ages of 18-89 years. .GFRon 04-10-2021 GFR Non- 78 ml/min/1.73sqm Normal [facility] ([place]) Comment on above: Result Comment: GFR Population mean for , Non- Americans Ages 20-29 = 116 mL/min/1.73 sq.m. Ages 30-39 = 107 mL/min/1.73 sq.m. Ages 40-49 = 99 mL/min/1.73 sq.m. Ages 50-59 = 93 mL/min/1.73 sq.m. Ages 60-69 = 85 mL/min/1.73 sq.m. Ages 70+ = 75 mL/min/1.73 sq.m. Chronic Kidney Disease: Less than 60 mL/min/1.73 square meters End Stage Renal Disease: Less than 15 mL/min/1.73 square meters Performed By: #### T SH, CMP, GFR, LIPID #### [address] [address] #### HCV1 #### [address] [address] GFR 94 ml/min/1.73sqm Normal [facility] [place] Comment on above: Result Comment: GFR Population mean for , Non- Americans Ages 20-29 = 116 mL/min/1.73 sq.m. Ages 30-39 = 107 mL/min/1.73 sq.m. Ages 40-49 = 99 mL/min/1.73 sq.m. Ages 50-59 = 93 mL/min/1.73 sq.m. Ages 60-69 = 85 mL/min/1.73 sq.m. Ages 70+ = 75 mL/min/1.73 sq.m. Chronic Kidney Disease: Less than 60 mL/min/1.73 square meters End Stage Renal Disease: Less than 15 mL/min/1.73 square meters Performed By: #### T SH, CMP, GFR, LIPID #### [address] [address] #### HCV1 #### [address] [address] CMPon 04-10-2021 Albumin Level 3.5 G/dL Normal 3.5-5.0 [facility] [place] Comment on above: Performed By: #### T SH, CMP, GFR, LIPID #### [address] [address] #### HCV1 #### [address] [address] Albumin/Globulin [Mass ratio] 0.9 {ratio} Low 1.1-2.5 [facility] [place] Comment on above: Performed By: #### T SH, CMP, GFR, LIPID #### [place] [address] #### HCV1 #### [address] [address] ALP [Catalytic activity/Vol] 67 U/L Normal 40-135 [facility] [place] Comment on above: Performed By: #### T SH, CMP, GFR, LIPID #### [place] [address] #### HCV1 #### [address] [address] ALT [Catalytic activity/Vol] 42 U/L Normal 14-59 [facility] [place] Comment on above: Performed By: #### T SH, CMP, GFR, LIPID #### [place] [address] #### HCV1 #### [address] [address] AST [Catalytic activity/Vol] 29 U/L Normal 10-40 [facility] ([place] Comment on above: Performed By: #### T SH, CMP, GFR, LIPID #### [place] [address] #### HCV1 #### [address] [address] Bili Total 0.9 mg/dL Normal 0.2-1.0 [facility] ([place] Comment on above: Result Comment: Use of this assay is not recommended for patients undergoing treatment with eltrombopag due to the potential for falsely elevated results. Performed By: #### T SH, CMP, GFR, LIPID #### [place] [address] #### HCV1 #### [address] [address] BUN/Creatinine Ratio 10 ratio Normal 7-27 [facility] ([place] Comment on above: Performed By: #### T SH, CMP, GFR, LIPID #### [place] [address] #### HCV1 #### [address] [address] Calcium [Mass/Vol] 9.0 mg/dL Normal 8.4-10.2 [facility] ([place] Comment on above: Performed By: #### T SH, CMP, GFR, LIPID #### [place] [address] #### HCV1 #### [place] [address] Chloride [Moles/Vol] 101 mmol/L Normal 98-107 [facility] ([place] Comment on above: Performed By: #### T SH, CMP, GFR, LIPID #### [place] [address] #### HCV1 #### [place] [address] CO2 [Moles/Vol] 29 mmol/L Normal 22-29 [facility] [place] Comment on above: Performed By: #### T SH, CMP, GFR, LIPID #### [place] [address] #### HCV1 #### [place] [address] Creatinine [Mass/Vol] 0.88 mg/dL Normal 0.55-1.02 [facility] [place] Comment on above: Performed By: #### T SH, CMP, GFR, LIPID #### [place] [address] #### HCV1 #### [place] [address] Electrolyte Balance 11.0 mEq/L Normal 4.0-15.0 [facility] ([place] Comment on above: Performed By: #### T SH, CMP, GFR, LIPID #### [place] [address] #### HCV1 #### [place] [address] Globulin 4.0 G/dL Normal [facility] ([place] Comment on above: Performed By: #### T SH, CMP, GFR, LIPID #### [address] [address] #### HCV1 #### [address] [address] Glucose [Mass/Vol] 93 mg/dL Normal 70-105 [facility] ([place] Comment on above: Performed By: #### T SH, CMP, GFR, LIPID #### [address] [address] #### HCV1 #### [address] [address] Potassium [Moles/Vol] 3.9 mmol/L Normal 3.5-5.1 [facility] [place] Comment on above: Performed By: #### T SH, CMP, GFR, LIPID #### [place] [address] #### HCV1 #### [address] [address] Sodium [Moles/Vol] 141 mmol/L Normal 136-145 [facility] ([place] Comment on above: Performed By: #### T SH, CMP, GFR, LIPID #### [address] [address] #### HCV1 #### [address] [address] Total Protein 7.5 G/dL Normal 6.4-8.2 [facility] [place] Comment on above: Performed By: #### T SH, CMP, GFR, LIPID #### [place] [address] #### HCV1 #### [address] [address] Urea nitrogen [Mass/Vol] 9 mg/dL Normal 7-18 [facility] [place] Comment on above: Performed By: #### T SH, CMP, GFR, LIPID #### [address] [address] #### HCV1 #### [address] [address] LABORATORYOrdered By: Suhail Alcaraz on 04-10-2021 Albumin BCP dye [Mass/Vol] 3.5 G/dL Invalid Interpretation Code 3.5 - 5.0 G/dL AO ADM SS Albumin/Globulin [Mass ratio] 0.9 {ratio} Invalid Interpretation Code 1.1 - 2.5 ratio AO ADM SS ALP [Catalytic activity/Vol] 67 U/L Invalid Interpretation Code 40 - 135 U/L AO ADM SS ALT With P-5'-P [Catalytic activity/Vol] 42 U/L Invalid Interpretation Code 14 - 59 U/L AO ADM SS AST With P-5'-P [Catalytic activity/Vol] 29 U/L Invalid Interpretation Code 10 - 40 U/L AO ADM SS Bilirubin [Mass/Vol] 0.9 mg/dL Invalid Interpretation Code 0.2 - 1.0 mg/dL AO ADM SS Calcium [Mass/Vol] 9.0 mg/dL Invalid Interpretation Code 8.4 - 10.2 mg/dL AO ADM SS Chloride [Moles/Vol] 101 mmol/L Invalid Interpretation Code 98 - 107 mmol/L AO ADM SS CO2 [Moles/Vol] 29 mmol/L Invalid Interpretation Code 22 - 29 mmol/L AO ADM SS Creatinine [Mass/Vol] 0.88 mg/dL Invalid Interpretation Code 0.55 - 1.02 mg/dL AO ADM SS Electrolyte Balance 11.0 mEq/L Invalid Interpretation Code 4.0 - 15.0 mEq/L AO ADM SS Globulin 4.0 G/dL Invalid Interpretation Code AO ADM SS Glucose [Mass/Vol] 93 mg/dL Invalid Interpretation Code 70 - 105 mg/dL AO ADM SS Potassium [Moles/Vol] 3.9 mmol/L Invalid Interpretation Code 3.5 - 5.1 mmol/L AO ADM SS Protein [Mass/Vol] 7.5 G/dL Invalid Interpretation Code 6.4 - 8.2 G/dL AO ADM SS Sodium [Moles/Vol] 141 mmol/L Invalid Interpretation Code 136 - 145 mmol/L AO ADM SS Urea nitrogen [Mass/Vol] 9 mg/dL Invalid Interpretation Code 7 - 18 mg/dL AO ADM SS Urea nitrogen/Creatinine [Mass ratio] 10 ratio Invalid Interpretation Code 7 - 27 ratio AO ADM SS LABORATORYOrdered By: SYSTEM SYSTEM on 04-10-2021 GFR 94 ml/min/1.73sqm Invalid Interpretation Code AO Chemistry S GFR Non- 78 ml/min/1.73sqm Invalid Interpretation Code AO Chemistry S .GFRon 03-04-2021 GFR 107 ml/min/1.73sqm Normal [facility] [place] Comment on above: Result Comment: GFR Population mean for , Non- Americans Ages 20-29 = 116 mL/min/1.73 sq.m. Ages 30-39 = 107 mL/min/1.73 sq.m. Ages 40-49 = 99 mL/min/1.73 sq.m. Ages 50-59 = 93 mL/min/1.73 sq.m. Ages 60-69 = 85 mL/min/1.73 sq.m. Ages 70+ = 75 mL/min/1.73 sq.m. Chronic Kidney Disease: Less than 60 mL/min/1.73 square meters End Stage Renal Disease: Less than 15 mL/min/1.73 square meters Performed By: #### C MP, GFR #### [address] [address] GFR Non- 88 ml/min/1.73sqm Normal [facility] [place] Comment on above: Result Comment: GFR Population mean for , Non- Americans Ages 20-29 = 116 mL/min/1.73 sq.m. Ages 30-39 = 107 mL/min/1.73 sq.m. Ages 40-49 = 99 mL/min/1.73 sq.m. Ages 50-59 = 93 mL/min/1.73 sq.m. Ages 60-69 = 85 mL/min/1.73 sq.m. Ages 70+ = 75 mL/min/1.73 sq.m. Chronic Kidney Disease: Less than 60 mL/min/1.73 square meters End Stage Renal Disease: Less than 15 mL/min/1.73 square meters Performed By: #### C MP, GFR #### [address] [address] CMPon 03-04-2021 Albumin Level 3.3 G/dL Low 3.5-5.0 [facility] [place] Comment on above: Performed By: #### C MP, GFR #### [place] [address] [address] Albumin/Globulin [Mass ratio] 0.9 {ratio} Low 1.1-2.5 [facility] [place] Comment on above: Performed By: #### C MP, GFR #### [address] [address] ALP [Catalytic activity/Vol] 76 U/L Normal 40-135 [facility] [place] Comment on above: Performed By: #### C MP, GFR #### [address] [address] ALT [Catalytic activity/Vol] 33 U/L Normal 14-59 [facility] [place] Comment on above: Performed By: #### C MP, GFR #### [address] [address] AST [Catalytic activity/Vol] 19 U/L Normal 10-40 [facility] [place] Comment on above: Performed By: #### C MP, GFR #### [address] [address] Bili Total 0.7 mg/dL Normal 0.2-1.0 [facility] [place] Comment on above: Result Comment: Use of this assay is not recommended for patients undergoing treatment with eltrombopag due to the potential for falsely elevated results. Performed By: #### C MP, GFR #### [address] [address] BUN/Creatinine Ratio 16 ratio Normal 7-27 [facility] [place] Comment on above: Performed By: #### C MP, GFR #### [address] [address] Calcium [Mass/Vol] 8.5 mg/dL Normal 8.4-10.2 [facility] ([place] Comment on above: Performed By: #### C MP, GFR #### [address] [address] Chloride [Moles/Vol] 100 mmol/L Normal 98-107 [facility] [place] Comment on above: Performed By: #### C MP, GFR #### [address] [address] CO2 [Moles/Vol] 28 mmol/L Normal 22-29 [facility] [place] Comment on above: Performed By: #### C MP, GFR #### [address] [address] Creatinine [Mass/Vol] 0.79 mg/dL Normal 0.55-1.02 [facility] [place] Comment on above: Performed By: #### C MP, GFR #### [address] [address] Electrolyte Balance 11.0 mEq/L Normal [facility] ([place] Comment on above: Performed By: #### C MP, GFR #### [address] [address] Globulin 3.8 G/dL Normal [facility] [place] Comment on above: Performed By: #### C MP, GFR #### [address] [address] Glucose [Mass/Vol] 121 mg/dL High 70-105 [facility] ([place] Comment on above: Performed By: #### C MP, GFR #### [address] [address] Potassium [Moles/Vol] 3.8 mmol/L Normal 3.5-5.1 [facility] [place] Comment on above: Performed By: #### C MP, GFR #### [address] [address] Sodium [Moles/Vol] 139 mmol/L Normal 136-145 [facility] [place] Comment on above: Performed By: #### C MP, GFR #### [address] [address] Total Protein 7.1 G/dL Normal 6.4-8.2 [facility] [place] Comment on above: Performed By: #### C MP, GFR #### [address] [address] Urea nitrogen [Mass/Vol] 13 mg/dL Normal 7-18 [facility] [place] Comment on above: Performed By: #### C MP, GFR #### [facility] [place] [facility] [address], [place] [address] LABORATORYOrdered By: Cristina Spann on 03-04-2021 Albumin BCP dye [Mass/Vol] 3.3 G/dL Invalid Interpretation Code 3.5 - 5.0 G/dL AO ADM SS Albumin/Globulin [Mass ratio] 0.9 {ratio} Invalid Interpretation Code 1.1 - 2.5 ratio AO ADM SS ALP [Catalytic activity/Vol] 76 U/L Invalid Interpretation Code 40 - 135 U/L AO ADM SS ALT With P-5'-P [Catalytic activity/Vol] 33 U/L Invalid Interpretation Code 14 - 59 U/L AO ADM SS AST With P-5'-P [Catalytic activity/Vol] 19 U/L Invalid Interpretation Code 10 - 40 U/L AO ADM SS Bilirubin [Mass/Vol] 0.7 mg/dL Invalid Interpretation Code 0.2 - 1.0 mg/dL AO ADM SS Calcium [Mass/Vol] 8.5 mg/dL Invalid Interpretation Code 8.4 - 10.2 mg/dL AO ADM SS Chloride [Moles/Vol] 100 mmol/L Invalid Interpretation Code 98 - 107 mmol/L AO ADM SS CO2 [Moles/Vol] 28 mmol/L Invalid Interpretation Code 22 - 29 mmol/L AO ADM SS Creatinine [Mass/Vol] 0.79 mg/dL Invalid Interpretation Code 0.55 - 1.02 mg/dL AO ADM SS Electrolyte Balance 11.0 mEq/L Invalid Interpretation Code AO ADM SS Globulin 3.8 G/dL Invalid Interpretation Code AO ADM SS Glucose [Mass/Vol] 121 mg/dL Invalid Interpretation Code 70 - 105 mg/dL AO ADM SS Potassium [Moles/Vol] 3.8 mmol/L Invalid Interpretation Code 3.5 - 5.1 mmol/L AO ADM SS Protein [Mass/Vol] 7.1 G/dL Invalid Interpretation Code 6.4 - 8.2 G/dL AO ADM SS Sodium [Moles/Vol] 139 mmol/L Invalid Interpretation Code 136 - 145 mmol/L AO ADM SS Urea nitrogen [Mass/Vol] 13 mg/dL Invalid Interpretation Code 7 - 18 mg/dL AO ADM SS Urea nitrogen/Creatinine [Mass ratio] 16 ratio Invalid Interpretation Code 7 - 27 ratio AO ADM SS LABORATORYOrdered By: SYSTEM SYSTEM on 03-04-2021 GFR 107 ml/min/1.73sqm Invalid Interpretation Code AO Chemistry S GFR Non- 88 ml/min/1.73sqm Invalid Interpretation Code AO Chemistry S Vital Signs Date Time Vital Sign Value Performing Clinician Maegan kirby 11-10-2022 20:03-0400 Body height 175.26 cm [facility] 11-10-2022 20:03-0400 Body mass index (BMI) [Ratio] 51.4 kg/m2 [facility] 11-10-2022 20:03-0400 Body temperature 97.3 [degF] [facility] 11-10-2022 20:03-0400 Body weight 158.03 kg [facility] 11-10-2022 20:03-0400 Diastolic blood pressure 100 mm[Hg] [facility] 11-10-2022 20:03-0400 Heart rate 89 /min [facility] 11-10-2022 20:03-0400 Respiratory rate 16 /min [facility] 11-10-2022 20:03-0400 SaO2% (BldA) [Mass fraction] 98 % [facility] 11-10-2022 20:03-0400 Systolic blood pressure 173 mm[Hg] [facility] Encounters Encounter Date Encounter Type Care Provider Facility Start: 01-02-2025 End: 01-02-2025 ambulatory SADAF LUDY Facility:[facility] Start: 01-01-2025 End: 01-01-2025 ambulatory SADAF LUDY Facility:[facility] Start: 12-13-2024 End: 12-13-2024 ambulatory SADAF LUDY Facility:[facility] Start: 04-16-2023 End: 04-16-2023 ambulatory Jamaica Burgess NP Facility:[facility] Start: 04-14-2023 End: 04-14-2023 ambulatory Jamaica Burgess NP Facility:[facility] Start: 11-10-2022 End: 11-11-2022 Emergency department patient visit Jamaica Burgess NP Facility:[facility] Start: 11-10-2022 End: 08-22-2023 Emergency department patient visit [facility] Work Phone: Start: 12-08-2021 End: 12-09-2021 ambulatory MARSHALL ROBLES DO Facility:[facility] Start: 12-08-2021 End: 12-08-2021 Patient encounter procedure MARSHALL ROBLES DO [facility] Start: 12-03-2021 End: 12-08-2021 ambulatory MARSHALL ROBLES DO Facility:[facility] Start: 12-03-2021 End: 12-08-2021 Encounter for gynecological examination (general) (routine) without abnormal findings MARSHALL ROBLES DO Facility:B Start: 12-03-2021 End: 12-07-2021 Outreach Lab MARSHALL ROBLES DO [facility] Start: 10-23-2021 End: 10-24-2021 ambulatory MARSHALL ROBLES DO Facility:B Start: 10-23-2021 End: 10-23-2021 Patient encounter procedure MARSHALL ROBLES DO [facility] Start: 04-10-2021 End: 04-11-2021 ambulatory MARSHALL ROBLES DO Facility:B Start: 04-10-2021 End: 04-10-2021 Patient encounter procedure MARSHALL ROBLES DO [facility] Start: 03-04-2021 End: 03-05-2021 ambulatory MARSHALL ROBLES DO Facility:B Start: 03-04-2021 End: 03-04-2021 Patient encounter procedure MARSHALL ROBLES DO [facility] Procedures Date Procedure Procedure Detail Performing Clinician Start: 01-02-2025 Antibody screen LEONIDES CHAVIRA JR Comment on above: Order Comment: Speci men Type: BLOOD SPECIMEN Ordering Facility: [facility] Address: [address] [place] [address] Performed By: #### T SPN #### [facility] CLIA [id number] [address] [place] [address] [place] Start: 03-22-2017 Annita IGNACIO DO Plan of Treatment Date Care Activity Detail Author Patient Education Back Exercises : Knee Lift Back Exercises: Leg Pull Back Exercises: Lower Back Stretch [facility] Work Phone: Patient referral [facility] Work Phone: Immunizations Immunization Date Immunization Notes Care Provider Fa [facility] 09-16-2021 COVID-19, mRNA, LNP- S, PF, 100 mcg or 50 mcg dose; Translations: [Moderna COVID-19 Vaccine] MARSHALL ROBLES DO [facility] 07-16-2021 COVID-19, mRNA, LNP- S, PF, 100 mcg or 50 mcg dose; Translations: [Moderna COVID-19 Vaccine] MARSHALL ROBLES DO [facility] 02-27-2021 influenza, injectabl e, quadrivalent, contains preservative; Translations: [Fluarix PF Quadrivalent ] MARSHALL ROBLES DO [facility] 06-06-2018 influenza virus vacc ine, unspecified formulation MARSHALL ROBLES DO [facility] 12-30-2011 influenza virus vacc ine, unspecified formulation MARSHALL ROBLES DO [facility] 10-22-2011 meningococcal polysaccharide (groups A, C, Y and W-135) diphtheria toxoid conjugate vaccine (MCV4P) MARSHALL ROBLES DO [facility] 01-16-2009 influenza virus vacc ine, unspecified formulation MARSHALL ROBLES DO [facility] 06-09-2007 Human Papillomavirus Quadval MARSHALL ROBLES DO [facility] 02-04-2007 Human Papillomavirus Quadval MARSHALL ROBLES DO [facility] 11-25-2006 Human Papillomavirus Quadval MARSHALL ROBLES DO [facility] 10-29-2005 tetanus toxoid, redu jose diphtheria toxoid, and acellular pertussis vaccine, adsorbed MARSHALL ROBLES DO [facility] 10-29-2005 varicella virus vaccine JIMY ROBLES DO [facility] 07-18-1999 measles/mumps/rubell a virus vaccine MARSHALL ROBLES DO [facility] 08-17-1995 haemophilus influenz ae type b vaccine, PRP-T conjugate MARSHALL MARGARET DO [facility] 08-17-1995 varicella virus vaccine JIMY ROBLES DO [facility] 05-17-1995 measles/mumps/rubell a virus vaccine MARSHALL MARGARET DO [facility] 01-26-1995 hepatitis B pediatri c vaccine MARSHALL ROBLES DO [facility] 1994 haemophilus influenz ae type b vaccine, PRP-T conjugate MARSHALL ROBLES DO [facility] 1994 haemophilus influenz ae type b vaccine, PRP-T conjugate MARSHALL ROBLES DO [facility] 1994 haemophilus influenz ae type b vaccine, PRP-T conjugate MARSHALL ROBLES DO [facility] 1994 hepatitis B pediatri c vaccine MARSHALL ROBLES DO [facility] 1994 hepatitis B pediatri c vaccine MARSHALL ROBLES DO [facility] Payers Date Payer Category Payer Unknown [id number] 2022 Self-pay [id number] [facility] 2021 Unknown [id number] 1994 Unknown [id number] 1994 Unknown [id number] 1994 Unknown [id number] 1994 Unknown [id number] 1994 Unknown [id number] Medicaid ANTHEM MEDICAID [id number] Unknown ANTHEM [id number] Unknown [id number] Unknown PARAMOUNT ADV D *DO NOT USE* [id number] Unknown [id number] Unknown [id number] Unknown [id number] Unknown [id number] Social History Date Type Detail Facility Start: 10-12-2019 Never smoked t obacco (finding) [facility] Start: 1995 Sex Assigned At Female [facility] Start: 11-10-2022 Tobacco smoking status NHIS Unknown if ever smoked [facility] NEGATED: Highlighted row [facility] Clinical Notes 11-10-2022 to 12-12-2024 Note Date & Type Note Facility 12-12-2024 Note HNO ID: [id number] Author: SADAF SILVEIRA APRN.SPECIAL EDUCATION RESOURCE TEACHER Service: ? Author Type: Nurse Practitioner Type: Progress Notes Filed: 12/13/2024 14:46 Note Text: Patient declined manual tester. INITIAL OB ASSESSMENT Patient reported +HPT, [facility] unknown date. Previous provider at [facility] 2023, reported frieda; pap testing 2024 no Hx abnormal pap. HPI: Jason is a 29 year old / here to establish Obstetrical Care. Patient's last menstrual period was 10/04/2024 (exact date). from OB Dating Form. was unplanned but accepted Complaints: No OB History Gravida1 Para0 Term0 Preterm0 AB0 Living0 SAB0 IAB0 Ectopic0 Multiple0 Live Births0 Previous history: Prior : never History of 4th degree laceration: No History of shoulder dystocia: No History of Hypertensive disorders including pre-eclampsia or gestational hypertension: No History of gestational diabetes: No Patient's Risk Screening for delivery: Have you had a prior rivera between 20w and 36w6d? No How many pregnancies have you had before? none Did you have a previous baby with a GBS Infection? No Please select all that apply for any prior : N/A MEDICAL/PSYCHOSOCIAL HISTORY: History of hemorrhage or bleeding concerns: No Thyroid Disease: No History of chronic hypertension: Yes, Hx hypertension 2023. History of pre-existing diabetes: No No results found for: "ABORHD" BMI 50.17 kg/(m2) Last Pap: History of abnormal pap: No Prior treatment for cervical dysplasia: none. Last HPV: History of STDs: None Partner History of STDs: None Did you have a partner with Herpes? No Tobacco use: No E-Cigarette/Vaping Use: No Caffeine use: Yes Drug use: No Alcohol use: No Multivitamin with Folic acid: Yes Would refuse blood transfusion if medically necessary: No Social Needs: How often does this describe you? I don't have enough money to pay my bills: Never Within the past 12 months, have you worried that your food would run out before you had money to buy more? Never In the past 12 months, has lack of reliable transportation kept you from going to medical appointments or work, or from getting things needed for daily living? Never In the past 12 months, have you had any concerns about having a place to live, or about the condition or quality of your housing? Never Would you like more information on any of the following (please check all that apply)? Not interested Social History: Do you have any history of depression, anxiety, PTSD, or other mood problems? No Do you have a history of abuse or trauma that may impact your experience? No Are you currently employed? No Depression/Anxiety Screening: denies symptoms of depression. OB Depression and Anxiety Screening- This Encounter Feeling down, depressed, or hopeless: Several days Little interest or pleasure in doing things: Not at all Feeling nervous, anxious, or on edge Several days Not being able to stop or control worrying Not at all Anxiety Pre-Screening Total (If >/= 3 additional questions will be reviewed) 1 Genetic Screening: Partner present: Patient verbalized knowledge of partner family health history: Yes Do you or your partner have any personal or family history of defects not previously discussed: No Do you have history of a complicated by anomaly, genetic condition, or demise: No Preeclampsia Risk Screening: Screening for prevention of preeclampsia: High risk factors: Chronic hypertension Moderate risk ractors: Nulliparity and Obesity (body mass index greater than 30) OB Risk Screening: Completed, no positive findings documented. Marital Status:Single Partner: Name: Tho Hayes Age: 31 Occupation: Maintenance Gender: Male PAST MEDICAL HISTORY Diagnosis Date Russell esophagus with dysplasia Essential hypertension GERD (gastroesophageal reflux disease) History reviewed. No pertinent surgical history. Current Outpatient Medications Medication Sig Dispense Refill vit,j carlos 74/iron/folic ( VITAMIN 1+1 ORAL) Take by mouth once daily. aspirin, enteric coated (ECOTRIN LOW STRENGTH) 81 mg EC tablet Take 1 tablet by mouth once daily. 90 tablet 3 No current facility-administered medications for this visit. Allergies As of Date: 12/13/2024 (No Known Allergies) Fully Assessed 12/12/2024 Does patient have penicillin allergy: No REVIEW OF SYSTEMS: GENERAL: Negative for: Fever or Chills HEENT: Negative for: Headache, Impaired Vision, Ringing in Ears, Nosebleeds NECK: Negative for: Swelling, Pain, Stiffness RESPIRATORY: Negative for: Cough, Shortness of breath, Wheezing GASTROINTESTINAL: Negative for: Heartburn, Diarrhea, Blood in stool, Vomiting, Positive for: Constipation, and Positive for: Nausea and Vomitin (more content not included)... 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 She has no radiation. No bowel bladder compromise or urinary retention symptoms. PFSH PFSH Medical History Barretts esophagus Dysphagia GERD (gastroesophageal reflux disease) Headache HTN (hypertension) Morbid obesity Home Medications naproxen 500 mg tablet (Naprosyn) 500 mg PO BID PRN pain #20 tabs 11/10/22 [Rx Last Taken Unknown] tizanidine 4 mg tablet 4 mg PO Q8H PRN muscle spasticity #10 tabs 11/10/22 [Rx Last Taken Unknown] Allergy/AdvReac Type Severity Reaction Status Date / Time No Known Allergies Allergy Verified 11/10/22 20:02 Family History Mother Arthritis Diabetes Cancer Thyroid Thyroid disorder Father Heart disease CVA (cerebral vascular accident) Arthritis Surgical History History of esophagogastroduodenoscopy (EGD) Social History Smoking Status: Never smoker second hand exposure: No alcohol intake: never substance use type: does not use caffeine: Yes what type of physical activity do you participate in: none frequency: does not exercise seatbelt use: always ROS ROS ED ROS Narrative Past medical history: Reviewed Medications: Reviewed Social history: Noncontributory Review of systems: All systems negative except as indicated General: No fever Cardiovascular: No chest pain Respiratory: No shortness of breath or cough Gastrointestinal: No abdominal pain, nausea vomiting or diarrhea Genitourinary: No dysuria Musculoskeletal: Back pain as in HPI Skin: No rash Neurological: No radicular symptoms EXAM Physical Exam Narrative Exam Narrative: Vitals reviewed General: Patient appears in some discomfort HEENT: Moist mucous membranes Neck: Nontender Cardiovascular normal heart rate Respiratory: No respiratory difficulty speaking in full sentences Abdomen: Soft and nontender, there is no suprapubic mass or pain Back: There is some tenderness over the lumbar region, pain is spinal and paraspinal both. Extremities: Moves all extremities without joint pain or signs of trauma Neurological: There is normal plantar flexion and dorsiflexion of both feet and great toes. Patellar and Achilles reflexes are normal. Normal strength and sensation. Negative straight leg test. Skin: No rash Psychiatric: Slightly anxious. Const Vital Signs: 11/10/22 20:03 Temperature 97.3 F L Temperature Source Temporal Pulse Rate 89 Respiratory Rate 16 Blood Pressure 173/100 H Blood Pressure Mean 124 Pulse Ox 98 MDM MDM MDM Narrative Medical decision making narrative: Patient has no radicular symptoms or red flags. I am not worried about cauda equina she has no fever chills or any other signs symptoms of discitis or osteomyelitis. A stat MRI is not needed. Patient has lifting injury and no obvious fall or trauma therefore x-rays not needed. Patient appears well I willdischarge in stable condition. I will give her muscle relaxants and anti-inflammatories for home. I told her about proper lifting techniques Discharge Plan Triage Chief Complaint: Back ED Provider: Jack Hinds Dx/Rx/DC Orders Clinical Impression: Back pain, Acute lumbar myofascial strain Instructions: Back Exercises: Knee Lift, Back Exercises: Leg Pull, Back Exercises: Lower Back Stretch Prescriptions: New naproxen [Naprosyn] 500 mg tablet 500 mg PO BID PRN (Reason: pain) Qty: 20 0RF tizanidine 4 mg tablet 4 mg PO Q8H PRN (Reason: muscle spasticity) Qty: 10 0RF Primary Care Provider: Jamaica Burgess NP Referrals: Jamaica Burgess NP, PROFESSOR OF PUBLIC ADMINISTRATION-C [Primary Care Provider] - Disposition Disposition: Home, Self Care What to do if you have Problems For any increased pain, shortness of breath, bleeding, nausea or vomiting, chestpain, or any unexpected problems, contact your Primary Care Provider. Call [facility] ([phone]) or report to the closest Emergency Room. Call 911 if necessary. 11/10/22 [id number] <Electronically signed by Jack Hinds MD> Cosigner Signature (if applicable): CC: PROFESSOR OF PUBLIC ADMINISTRATIONMargaret Burgess ~ Signed [facility] Work Phone: Evaluation + Plan note Future Appointments Appointment Date:04/10/2021 02:30:00 PM Scheduled Provider:MARSHALL ROBLES DO Location:[facility] Appointment Type:PC OV Follow Up Appointment Date:05/28/2021 11:00:00 AM Scheduled Provider:MARSHALL ROBLES DO Location:[facility] Appointment Type:PC OV Follow Up Future Scheduled Tests Radiology* US Abdomen Limited 05/16/20 [facility] Evaluation + Plan note Future Appointments Appointment Date:05/22/2021 03:30:00 PM Scheduled Provider:MARSHALL ROBLES DO Location:[facility] Appointment Type:PC OV Appointment Date:05/28/2021 11:00:00 AM Scheduled Provider:MARSAHLL ROBLES DO Location:[facility] Appointment Type:PC OV Follow Up Future Scheduled Tests Laboratory* COVID-19 Only (AO) 03/14/21 Radiology* US Abdomen Limited 05/16/20 [facility] Evaluation + Plan note Future Appointments Appointment Date:12/03/2021 11:00:00 AM Scheduled Provider:MARSHALL ROBLES DO Location:[facility] Appointment Type:PC Wellness Female Future Scheduled Tests Laboratory* COVID-19 Only (AO) 03/14/21 [facility] Evaluation + Plan note Future Appointments Appointment Date:01/29/2022 10:30:00 AM Scheduled Provider:MARSHALL ROBLES DO Location:[facility] Appointment Type:PC OV Follow Up Future Scheduled Tests Laboratory* Pathology Warehouse Puller Request 12/03/21 * Thyroid Stimulating Hormone 12/03/21 * Lipid Profile 12/03/21 * Hepatitis C Antibody IgG 12/03/21 * Complete Metabolic Panel 12/03/21 * COVID-19 Only (AO) 03/14/21 [facility] Evaluation + Plan note Future Appointments Appointment Date:01/29/2022 10:30:00 AM Scheduled Provider:MARSHALL ROBLES DO Location:[facility] Appointment Type:PC OV Follow Up Future Scheduled Tests Laboratory* Pathology Warehouse Puller Request 12/03/21 * COVID-19 Only (AO) 03/14/21 [facility] Evaluation noteNo assessment information available [facility] Work Phone: Hospital course Narrative No data available for this section [facility] Hospital Discharge instructions No data available for this section [facility] Progress note No data available for this section [facility] Summary Purpose Family History No Family History Records Found Relationship Condition Age at Onset Recorded Date/T fabian mother Arthritis Unknown Diabetes mellitus Unknown Malignant neoplasm Unknown Disorder of thyroid Unknown father Cardiac disease Unknown Cerebrovascular accident (CVA) Unknown Arthritis Unknown Advance Directives No Advanced Directives Records Found Advance Directive Response Recorded Date/ Time Advance Directives No February 10:32pm Living Will No November 10 3 8:03pm Power of Stock Blender No November 10 023 8:03pm Chief Complaint and Reason for Visit Chief Complaint LOW BACK PAIN Additional Source Comments Care Team (unrecognized sect ion and content) Care Team Personnel Name: MARSHALL ROBLES DO Position: P4 Physician - Primary Care Med Service: Active Provider Member Role: Primary Care Physician Address: Address: [address] [place] [id number] [place] [address] Care Team Related Persons Name: ISABELLE SIDDIQI Address: Home [address] [phone] [place] Care Team Personnel Name: MARSHALL ROBLES DO Position: P4 Physician - Primary Care Med Service: Active Provider Member Role: Primary Care Physician Address: Address: [address] [place] [id number] Care Team Related Persons Name: ISABELLE SIDDIQI Address: Home [address] [phone] [place] Care Team Personnel Name: MARGARET MARSHALL Bonner Position: P4 Physician - Primary Care Med Service: Active Provider Member Role: Primary Care Physician Address: Address: [address] [facility] [place] [address]- Care Team Related Persons Name: ISABELLE SIDDIQI Address: Home [address] [phone] INFORMATION SOURCE (unrecogn ized section and content) DATE CREATED AUTHOR 12/17/2021 [facility] ([place]) DATE CREATED AUTHOR AUTHOR'S ORGANIZ ATION 05/02/2023 [facility] DATE CREATED AUTHOR AUTHOR'S ORGANIZ ATION 01/04/2025 [facility] Care Teams (unrecognized sec tion and content) Team Status: Active Member Role Status Dates Dr. Rao Mclain MD Family Provider Active Jamaica Burgess PROFESSOR OF PUBLIC ADMINISTRATION, PROFESSOR OF PUBLIC ADMINISTRATION-C Primary Care Provider Active Team Status: Inactive Member Role Status Dates Dr. Jack Hinds MD Emergency Provider Active Jamaica Burgess PROFESSOR OF PUBLIC ADMINISTRATION, PROFESSOR OF PUBLIC ADMINISTRATION-C Primary Care Provider Active Goals (unrecognized section and content) Goals may be documented in a n alternate section FOR RECORDS PERTAINING TO PATIENTS WHO ARE OR HAVE BEEN ENROLLED IN A CHEMICAL DEPENDENCY/SUBSTANCEABUSE PROGRAM, SOME INFORMATION MAY BE OMITTED. This clinical summary was aggregated from multiple sources. Caution should be exercised in using it in the provision of clinical care. This summary normalizes information from multiple sources, and as a consequence, information in this document may materially change the coding, format and clinical context of patient data. In addition, data may be omitted in some cases. CLINICAL DECISIONS SHOULD BE BASED ON THE PRIMARY CLINICAL RECORDS. [employer] provides no warranty or guarantee of the accuracy or completeness of information in this document.
[2025-01-10 22:39] LABS: Mucous, Urine 0 SEEN /hpf (<or=2+)
[2025-01-10 22:45] LABS: Color, Urine Yellow (Yellow); Glucose, Dipstick Normal (Normal); Ketone-Dipstick Negative (Negative); Leukocyte Esterase-Dipstick 25 /ul (Negative); Nitrite-Dipstick Negative (Negative); Occult Blood-Urine 250 /ul (Negative); Protein-Dipstick 15 mg/dl (Negative); Specific Gravity, Urine 1.015 (1.002-1.030); Urine Bilirubin Dipstick Negative (Negative)
[2025-01-10 23:06] LABS: Red Blood Cells-Urine 0-5 SEEN /hpf (0-5); Squamous Epithelial Cells - UA 25-50 SEEN /hpf (5-10)
--- NOTE | 2025-01-10 23:56 | EDS_ITS ---
HPI HPI - Female History of Present Illness Chief Complaint: Vag Bld, Preg Informant: patient and spouse/S.O. Narrative Narrative: Patient is a 29-year-old female who is a G1, P0 approximately 14 weeks . She states that she has had previous ultrasounds documenting an IUP. She reports that this evening she had some abdominal cramping and then went to the bathroom. She states that when she wiped there is a small amount of dark red blood on the toilet paper. She states there was no bleeding into her underwear and she states there has been no further bleeding or menstrual like bleeding. She denies any history of bleeding disorder or blood thinner use. She states her cramping has spontaneously resolved. She denies any fevers chills or dysuria. She states that as this is her first she was unsure if this bleeding was concerning or not and therefore comes to the ER for evaluation Patient does state that she has been struggling with high blood pressure during this and that is being monitored by her [employer]ES SCIENTIST. PFSH PFSH Medical History Barretts esophagus Dysphagia GERD (gastroesophageal reflux disease) Headache HTN (hypertension) Morbid obesity Home Medications Medication Instructions Recorded Last Taken Type vit no.95-ferrous 1 tab PO DAILY 01/10/25 Unk nown History fumarate 28 mg-folic acid 800 mcg tablet () Allergy/AdvReac Type Severity Reaction Status Date / Time No Known Allergies Allergy Verified 01/10/25 22:00 Family History Mother Arthritis Diabetes Cancer Thyroid Thyroid disorder Father Heart disease CVA (cerebral vascular accident) Arthritis Surgical History History of esophagogastroduodenoscopy (EGD) Social History Smoking Status: Never smoker second hand exposure: No alcohol intake: never substance use type: does not use caffeine: Yes what type of physical activity do you participate in: none frequency: does not exercise seatbelt use: always ROS ROS ED Constitutional Constitutional ED: Denies chills or fever(s) Eyes Eyes: Denies blurry vision or change in vision ENT ENT ED: Denies sore throat Cardiovascular Cardiovascular: Denies chest pain Respiratory/Chest Respiratory/Chest: Denies cough or dyspnea Gastrointestinal Gastrointestinal: Reports other Details: Positive abdominal cramping ; Denies abdominal pain, diarrhea, nausea or vomiting Genitourinary Genitourinary ED: Reports other Details: Positive vaginal bleeding ; Denies dysuria Musculoskeletal Musculoskeletal: Denies myalgias Integumentary Denies rash Neurologic Neurologic: Denies headache(s) Hematologic/Lymphatic Hematologic/Lymphatic: Denies easy bleeding or easy bruising EXAM Physical Exam Const Vital Signs: 01/10/25 22:01 01/10/25 22:22 01/10/25 23:57 Temperature 96.9 F L 98.6 F Temperature Source Temporal Pulse Rate 103 H 85 85 Respiratory Rate 18 14 14 Blood Pressure 176/97 H 161/72 H 161/72 H Blood Pressure Mean 123 101 101 Pulse Ox 100 95 95 Oxygen Delivery Method Room Air Room Air Positive well nourished, well developed and obese General Appearance ED: well developed; Negative for pallor Nutritional Appearance: obese HEENT HEENT Narrative: Normocephalic atraumatic Eyes PERRL and EOMs intact bilaterally General Eye ED: Negative for scleral icterus Neck supple Resp normal respiratory effort and clear to auscultation bilaterally Cardio regular rate and regular rhythm GI soft to palpation, non-tender and non-distended GI Narrative: Abdomen is obese soft nontender and nondistended with normal active bowel sounds. Fundus is palpated and consistent with reported gestational age No voluntary guarding or rigidity or pulsatile mass. No peritoneal signs Auscultation: normoactive bowel sounds Palpation: soft Back/Spine no CVA tenderness Extremity normal to inspection and full ROM Extremity Narrative: No asymmetric edema no pitting edema negative Homans' sign bilaterally Neuro oriented x3, CN's II-XII intact bilaterally and no sensory deficits noted Sensorium / Orientation: alert Motor Exam: strength 5/5 throughout Psych mental status grossly normal Skin no rashes or lesions noted Skin Narrative: Capillary refill is less than 3 seconds General Skin Exam: Negative for jaundice or pallor MDM MDM MDM Narrative Medical decision making narrative: Patient arrived to the ER hypertensive but reports a history of this and notes is being followed by the [employer] SCI[employer]IST. She reported abdominal cramping which had spontaneous resolved and just a scant amount of blood on the toilet paper with using the restroom. Based on the fact she no longer has abdominal pain she is afebrile and the blood was only minimal and there is no menstrual-like bleeding I have low concern for a threatened or spontaneous miscarriage. As she reports her blood pressure has been elevated during and is being monitored I have low concern that she is developing preeclampsia. Therefore I elected to place an ultrasound on the patient's abdomen and it confirmed a single IUP with normal activity and a cardiac rate of 155. The patient's urine had blood present which correlates with her report of symptoms and there is question of potential infection with +2 bacteria but there is contamination with 25-50 skin cells. She does not have dysuria and therefore I feel this is all contamination we will send the urine for culture to ensure there is no need for antibiotics but I will not place her on antibiotics at this time. On reevaluation the patient remains pain-free there has been no further bleeding and based on the scant amount of bleeding I do not feel the need to check a ABO Rh as it would not require RhoGAM. Therefore the patient is safe for discharge and can follow- up with her [employer] SCI[employer]IST for further evaluation History & Record Review Discussion w/independent historian: Patient and Significant other Lab Data Attestation: I reviewed the patient's lab results. Labs: Laboratory Results - last 24 hr 01/10/25 22:31 Urine Color Yellow Urine Clarity Clear Urine pH 6.0 Ur Specific [place] 1.015 Urine Protein 15 H Urine Glucose (UA) Normal Urine Ketones Negative Urine Occult Blood 250 H Urine Nitrite Negative Urine Bilirubin Negative Urine Urobilinogen Normal Ur Leukocyte Esterase 25 H Urine RBC 0-5 SEEN Urine WBC 0-5 SEEN Ur Squamous Epith Cells 25-50 SEEN Urine Bacteria 2+ Urine Mucus 0 SEEN Discharge Plan Triage Chief Complaint: Vag Bld, Preg ED Provider: Rio Lara Dx/Rx/DC Orders Clinical Impression: Vaginal bleeding during , HTN (hypertension), GERD (gastroesophageal reflux disease) Instructions: Vaginal Bleeding During Prescriptions: No Action PNV no.95-ferrous fumarate-FA [] 28 mg iron- 800 mcg tablet 1 tab PO DAILY Primary Care Provider: Jamaica Burgess NP Referrals: Suzette Foote MD [Med Staff - Active Staff, Obstetrics-Gynecology (OBGYN)] Jamaica Burgess NP, DEVELOPMENT TECHNICAL LEAD-C [Primary Care Provider, Family Practice] Activity Restrictions/Additional Instructions: If you develop significant cramping or begin to bleed similar to a menstrual cycle then you will need to return to the ER for repeat evaluation. Your urine sample showed contamination versus infection and therefore we will send for culture. If you do not hear anything in the next 2 to 3 days it means that the culture did not reveal true infection and there is no need for antibiotics. Follow-up with your [employer] SCIENTIST for repeat evaluation and return to the ER should you have any further concerns Print Language: French Disposition Disposition: Home, Self Care Discharge Date/Time: 01/11/25 00:00
[2025-01-10 23:57] VITALS: BP 161/72; PULSE 85; RESP 14; TEMP 37; O2SAT 95
== END 2025-01-11 | disposition home or self-care (01) ==
PROVIDERS: Emergency Provider Emergency Medicine; PCP Nurse Practitioner Primary Care; Visit Provider Emergency Medicine
DX: O20.9 Hemorrhage in early pregnancy, unspecified (principal); O10.012 Pre-existing essential hypertension complicating pregnancy, second trimester; O99.612 Diseases of the digestive system complicating pregnancy, second trimester; Z3A.14 14 weeks gestation of pregnancy; K21.9 Gastro-esophageal reflux disease without esophagitis
CPT/HCPCS: 81001; 87086; 87088; 99282